=== PATIENT | male | born 1955 | race Caucasian/White ===

== ENCOUNTER → 2016-10-20 | Outpatient (REF) | payer BC ==
[~2016-10-20] MED LIST: /MOXI40TA PO; /PANT40TA PO; ACET50TA PO; ALEV220C2 PO; ASPI81TA85 PO; BACITAB PO; CORICIDIN PO; CRES40TA PO; IMDU30TA PO; NITR4TASL SL; PROP40TA7 PO
== END ==
LOC: M LAB REF 13:25
PROVIDERS: ATTEND Nurse Practitioner Family
DX: R39.12 Poor urinary stream (principal)

== ENCOUNTER → 2016-10-30 | Outpatient (CLI) | payer BC | LOC: M LAB 08:30 | PROVIDERS: ATTEND Urology | DX: Z12.5 Encounter for screening for malignant neoplasm of prostate (principal) | CPT/HCPCS: 36415; G0103 ==

== ENCOUNTER 2016-12-22 18:17 | Emergency (ER) | payer BC ==
[~2016-12-22] VITALS: Ht 172.7 cm; Wt 85.3 kg
[2016-12-22 18:17] VITALS: BP 159/92
[2016-12-22] MEDS ORDERED: PEPC10CH PO (18:38)
[2016-12-22] MEDS ORDERED: RANO5TAB (18:38)
--- NOTE | 2016-12-22 19:24 | REP ---
Left knee four views : There is no fracture or dislocation. Mineralization and joint spaces are normal. There are no calcifications or foreign bodies. Impression: Negative left knee . Signed by Naseem Whiting MD 12/22/2016 07:15 P
[2016-12-22] MEDS ORDERED: NORCOTAB PO (21:00)
[2016-12-22] MEDS ORDERED: ACETAMINOPH W/CODEINE #3 TAB UD PO ONE ×2 (21:00)
== END 2016-12-22 21:44 | disposition home or self-care (01) ==
LOC: M ED 21:14
DX: M25.562 Pain in left knee (principal); I10 Essential (primary) hypertension; E78.5 Hyperlipidemia, unspecified; Z79.899 Other long term (current) drug therapy; Z79.82 Long term (current) use of aspirin; Z88.8 Allergy status to other drugs, medicaments and biological substances

== ENCOUNTER 2017-01-01 08:06 | Outpatient (RCR) | payer BC ==
[~2017-01-01 08:06] MED LIST changes: +NORCOTAB PO; +PEPC10CH PO; +RANO5TAB
== END 2017-01-16 ==
LOC: M PT 08:06
PROVIDERS: ATTEND Orthopaedic Surgery
DX: M25.562 Pain in left knee (principal)

== ENCOUNTER 2017-02-10 15:00 | Emergency (ER) | payer BC ==
[~2017-02-10] VITALS: Ht 165.1 cm; Wt 81.8 kg
[2017-02-10] MEDS ORDERED: MORPHINE 4 MG/ML 1ML SYRINGE IV PRN (15:30)
[2017-02-10] MEDS ORDERED: NS 500 ML IV ONE (15:30)
[2017-02-10] MEDS ORDERED: ONDANSETRON 4MG/2ML VIAL (J2405) IV ONE (15:30)
[2017-02-10 15:41] LABS: BASO % 0.3 % (0.0-1.0); EOS # 0.1 K/mm3 (0.0-0.50); EOS % 1.9 % (0.0-3.0); LARGE UNSTAINED CELL # 0.1 K/mm3 (0.0-0.4); LYMPH # 1.7 K/mm3 (1.5-4.5); LYMPH % 32.3 % (24.0-44.0); MEAN CORPUSCULAR HEMOGLOBIN 30.6 pg (27.0-33.0); MEAN CORPUSCULAR HGB CONC 33.2 g/dl (32.0-36.5); MEAN CORPUSCULAR VOLUME 91.9 fl (80.0-96.0); MONO # 0.4 K/mm3 (0.0-0.8); MONO % 7.3 % (0.0-5.0); NEUTROPHILS # 2.8 K/mm3 (1.8-7.7); NEUTROPHILS % 56.3 % (36.0-66.0); PLATELET COUNT, AUTOMATED 212 k/mm3 (150-450); RED CELL DISTRIBUTION WIDTH 13.5 % (11.5-14.5)
[2017-02-10 15:52] LABS: INR 1.01
[2017-02-10 16:14] LABS: ANION GAP 6 MEQ/L (8-16); AST/SGOT 19 U/L (15-37); BLOOD UREA NITROGEN 13 MG/DL (7-18); CALCIUM LEVEL 8.7 MG/DL (8.8-10.2); CARBON DIOXIDE LEVEL 25 MEQ/L (21-32); CHLORIDE LEVEL 105 MEQ/L (98-107); CREATININE FOR GFR 1.21 MG/DL (0.70-1.30); GLOMERULAR FILTRATION RATE > 60.0 (>49); GLUCOSE, FASTING 113 MG/DL (80-110); POTASSIUM SERUM 4.2 MEQ/L (3.5-5.1); SODIUM LEVEL 136 MEQ/L (136-145)
[2017-02-10 16:15] LABS: ALBUMIN 3.8 GM/DL (3.2-5.2); ALBUMIN/GLOBULIN RATIO 1.27 (1.00-1.93); ALKALINE PHOSPHATASE 104 U/L (45-117); ALT/SGPT 19 U/L (12-78); BILIRUBIN,DIRECT 0.2 MG/DL (0.0-0.2); BILIRUBIN,TOTAL 0.9 MG/DL (0.2-1.0); TOTAL PROTEIN 6.8 GM/DL (6.4-8.2)
[2017-02-10] MEDS ORDERED: ISOVUE-370 76% 100ML VIAL (Q9967) As Ordered ONE (16:27)
--- NOTE | 2017-02-10 17:10 | REP ---
REASON: Chest pain. COMPARISON: Multiple latest 05/28/2016 FINDINGS: The technique utilized in obtaining the radiograph has magnified the cardiac silhouette and accentuated the interstitial markings. The superior mediastinal structures are midline. The cardiac silhouette is unremarkable in size, shape, and position. The diaphragmatic surfaces of the lungs are regular, and the costophrenic angles are clear. The pulmonary garber are clear. The imaged osseous structures are intact. No significant change from the latest prior. IMPRESSION: There is no acute cardiopulmonary disease. Signed by Ned Mendoza DO 02/11/2017 02:21 P
--- NOTE | 2017-02-10 19:24 | REP ---
CT ANGIO CHEST: 02/10/2017. Comparison: Portable chest today, CT angiogram chest 03/24/2015. Clinical history: Chest pain in a 61-year-old male. Technique: The patient received 75 mL Isovue [address] pulmonary angiogram protocol. Findings: The lung garber are well inflated. There is no pleural effusion, pleural plaque or calcified plaque, pulmonary nodule or parenchymal mass. There is dependent atelectatic change in both lower lung zones and some patchy atelectasis in the deep sulci bilaterally. No dense consolidation or mass. Moderate sized hiatal hernia with about half of the stomach in the chest. Heart mildly prominent. Left atrium and left ventricle as well as right atrium are mildly prominent. There is no pericardial thickening or effusion. The aorta is without aneurysm or dissection. The main, right and left pulmonary arteries in the mediastinum are without filling defects. The lobar arteries are also without filling defects. The segmental and visible subsegmental arteries are without filling defects or vessel cutoff on either side. No pathologic sized mediastinal or hilar adenopathy and no axillary, supraclavicular mass. Thyroid lobes symmetric. The bone windows show sternum, manubrium, medial clavicles, glenohumeral joints, humeral heads, scapulae, ribs and spine without fracture, destructive lesion. There is slight thoracic kyphosis and degenerative disc changes most levels with marginal osteophytes. In the upper abdomen that portion of liver and spleen included are without focal lesion. There is moderate stool in the hepatic flexure through the splenic flexure without colitis. Pancreas unremarkable. There is no adrenal lesions. Upper poles of kidneys intact. Impression: 1. No CT evidence of pulmonary thromboembolism. 2. No aortic aneurysm or dissection, effusion, infiltrate or pneumothorax. Minor dependent atelectatic change. 3. Gastric bypass surgical clips with moderate sized hiatal hernia. 4. No mediastinal or hilar mass, adenopathy, pericardial effusion, axillary or supraclavicular mass. 5. Some degenerative changes in the spine without acute bony finding. Signed by Jeremy Higginbotham MD 02/11/2017 08:13 P
[2017-02-10 20:32] VITALS: BP 120/63
--- NOTE | 2017-02-12 11:20 | ECGEPIP ---
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
== END 2017-02-10 20:43 | disposition home or self-care (01) ==
LOC: M ED 15:00
DX: R07.9 Chest pain, unspecified (principal); I10 Essential (primary) hypertension; I25.10 Atherosclerotic heart disease of native coronary artery without angina pectoris; I25.2 Old myocardial infarction; Z95.5 Presence of coronary angioplasty implant and graft; Z95.1 Presence of aortocoronary bypass graft; Z88.8 Allergy status to other drugs, medicaments and biological substances; Z79.899 Other long term (current) drug therapy; Z79.82 Long term (current) use of aspirin
CPT/HCPCS: 71010; 71275; 80048; 80076; 82550; 82553; 84439; 84443; 85025; 85379; 85610; 85730; 93005; 93041; 94760; 96374; 96375; 99285; J2405; Q9967

== ENCOUNTER → 2017-05-19 | Outpatient (RCR) | payer BC | LOC: M PT 05-15 14:26 | PROVIDERS: ATTEND Orthopaedic Surgery | DX: Z51.89 Encounter for other specified aftercare (principal); S83.282D Other tear of lateral meniscus, current injury, left knee, subsequent encounter; S83.242D Other tear of medial meniscus, current injury, left knee, subsequent encounter; X58.XXXA Exposure to other specified factors, initial encounter; Y92.89 Other specified places as the place of occurrence of the external cause; Y93.89 Activity, other specified; Y99.8 Other external cause status ==

== ENCOUNTER 2017-06-02 08:23 | Outpatient (RCR) | payer BC | END 2017-06-18 | LOC: M PT 08:23 | PROVIDERS: ATTEND Orthopaedic Surgery | DX: Z51.89 Encounter for other specified aftercare (principal); Z98.890 Other specified postprocedural states ==

== ENCOUNTER → 2017-07-16 | Outpatient (CLI) | payer BC | LOC: M RAD 13:43 | DX: M51.06 Intervertebral disc disorders with myelopathy, lumbar region (principal) | CPT/HCPCS: 72148 ==

== ENCOUNTER → 2018-01-13 | Outpatient (REF) | payer BC ==
[2018-01-13 18:46] LABS: AMYLASE 54 U/L (25-115)
[2018-01-13 18:46] LABS: LIPASE 163 U/L (73-393)
== END ==
LOC: M LAB REF 17:34
DX: R10.817 Generalized abdominal tenderness (principal)

== ENCOUNTER → 2018-03-18 | Outpatient (REF) | payer BC, MEDICARE | LOC: M LAB REF 17:00 | DX: J01.90 Acute sinusitis, unspecified (principal) | CPT/HCPCS: 87070 ==

== ENCOUNTER 2018-06-30 09:32 | Emergency (ER) | payer BC, MEDICARE ==
[2018-06-30 10:36] LABS: BASO % 0.2 % (0.0-1.0); EOS % 0.2 % (0.0-3.0); IMMATURE GRANULOCYTE % 0.5 % (0-3.0); LYMPH % 8.8 % (24.0-44.0); MEAN CORPUSCULAR HEMOGLOBIN 31.6 pg (27.0-33.0); MEAN CORPUSCULAR HGB CONC 34.2 g/dl (32.0-36.5); MEAN CORPUSCULAR VOLUME 92.2 fl (80.0-96.0); MONO # 0.9 10^3/uL (0.0-0.8); MONO % 8.5 % (0.0-5.0); NEUTROPHILS # 8.9 10^3/uL (1.8-7.7); NEUTROPHILS % 81.8 % (36.0-66.0); PLATELET COUNT, AUTOMATED 252 10^3/uL (150-450); RED BLOOD COUNT 4.12 10^6/uL (4.30-6.10); RED CELL DISTRIBUTION WIDTH 12.9 % (11.5-14.5); WHITE BLOOD COUNT 10.9 10^3/uL (4.0-10.0)
[2018-06-30 10:47] LABS: INR 0.97; PARTIAL THROMBOPLASTIN TIME 25.9 SECONDS (25.4-37.6)
[2018-06-30 11:20] LABS: ALBUMIN 3.6 GM/DL (3.2-5.2); ALBUMIN/GLOBULIN RATIO 0.88 (1.00-1.93); ALKALINE PHOSPHATASE 132 U/L (45-117); ALT/SGPT 26 U/L (12-78); ANION GAP 6 MEQ/L (8-16); AST/SGOT 28 U/L (7-37); BILIRUBIN,DIRECT 0.1 MG/DL (0.0-0.2); BILIRUBIN,TOTAL 0.5 MG/DL (0.2-1.0); BLOOD UREA NITROGEN 15 MG/DL (7-18); CALCIUM LEVEL 8.6 MG/DL (8.8-10.2); CARBON DIOXIDE LEVEL 24 MEQ/L (21-32); CHLORIDE LEVEL 110 MEQ/L (98-107); CPK CREATINE PHOSPHOKINASE 590 U/L (39-308); CREATININE FOR GFR 1.17 MG/DL (0.70-1.30); FREE T4 0.99 NG/DL (0.76-1.46); GLOMERULAR FILTRATION RATE > 60.0 (>49); GLUCOSE, FASTING 100 MG/DL (70-100); LIPASE 132 U/L (73-393); MB/CK RELATIVE INDEX 0.46 (< OR =4); POTASSIUM SERUM 4.7 MEQ/L (3.5-5.1); SODIUM LEVEL 140 MEQ/L (136-145); TOTAL PROTEIN 7.7 GM/DL (6.4-8.2); TROPONIN I < 0.02 NG/ML (< 0.10)
[2018-06-30] MEDS ORDERED: GI COCKTAIL 50ML BTL(HYOSCYAMINE/MAALOX/LIDOCAINE VISCOUS)(1:3:1) As Ordered (12:26)
[2018-06-30] MEDS: GI COCKTAIL 50ML BTL(HYOSCYAMINE/MAALOX/LIDOCAINE VISCOUS)(1:3:1) PO (12:30)
[2018-06-30 14:04] LABS: CPK CREATINE PHOSPHOKINASE 523 U/L (39-308); MB/CK RELATIVE INDEX 0.42 (< OR =4); TROPONIN I < 0.02 NG/ML (< 0.10)
== END 2018-06-30 14:58 | disposition home or self-care (01) ==
LOC: M ED 09:32
DX: K22.4 Dyskinesia of esophagus (principal); K21.9 Gastro-esophageal reflux disease without esophagitis; K44.9 Diaphragmatic hernia without obstruction or gangrene; I10 Essential (primary) hypertension; Z79.82 Long term (current) use of aspirin; I25.10 Atherosclerotic heart disease of native coronary artery without angina pectoris; Z88.8 Allergy status to other drugs, medicaments and biological substances
CPT/HCPCS: 71046

== ENCOUNTER → 2018-09-07 | Outpatient (REF) | payer BC, MEDICARE ==
[~2018-09-07] MED LIST changes: +AMOX500C; +FLUTISP; +PRED20TA; +SUCR1TAB56 PO
[2018-09-07 14:35] LABS: PERCENT SATURATION 20.2 % (19.7-50.0)
== END ==
LOC: M LAB REF 12:24
PROVIDERS: ATTEND Internal Medicine
DX: Z98.84 Bariatric surgery status (principal)

== ENCOUNTER → 2019-06-01 | Outpatient (CLI) | payer BC, MEDICARE ==
[~2019-06-01] MED LIST changes: -/MOXI40TA PO; -/PANT40TA PO; -ACET50TA PO; +AVEL1TAB2 PO; +HYDR-3715 PO; +MAPA500T17 PO; -NORCOTAB PO; +PROT1TAB2 PO; +RANO500T7; -RANO5TAB
--- NOTE | 2019-06-01 11:39 | REP ---
MRI lumbar spine: 06/01/2019. Indication: Low back pain. Comparison: 07/16/2017. Technique: Multiplanar short and long TR sequences of the lumbar spine were obtained without IV Gadolinium. Findings: There is minimal retrolisthesis of L1 on L2, L2 on L3 and L3 on L4. No worrisome marrow signal is present. The visualized cord is normal. Disc desiccation and disc space narrowing are present throughout the lumbar spine. No significant paraspinal soft tissue abnormalities are present. L1/L2: Disc and spur complex is present most pronounced anteriorly with bilateral facet arthropathy which is mild. There is no significant spinal canal or neural foraminal narrowing. L2/L3: There is an asymmetric disc and spur complex more pronounced on the left without significant spinal canal or right neural foraminal narrowing. Mild facet arthropathy is present. There is mild left neural foraminal narrowing. L3/L4: Diffuse disc bulge and left greater than right facet arthropathy are present without significant spinal canal or neural foraminal narrowing. L4/L5: There is a far right lateral disc herniation superimposed on a diffuse disc bulge best appreciated on image 11 of the sagittal T1 sequence. The disc herniation does contact the exiting L4 nerve root. There is no significant spinal canal or left neural foraminal narrowing. L5/S1: Diffuse disc and spur complex and bilateral facet arthropathy are present with moderate to severe right and mild left recess narrowing. Moderate bilateral neural foraminal narrowing is present. Impression: Far right lateral L4/L5 disc herniation. Additional multilevel degenerative sequelae of the lumbar spine as described. Electronically Signed by Zenon Nieves DO 06/01/2019 11:31 A
== END ==
LOC: M RAD 09:30
PROVIDERS: ATTEND Orthopaedic Surgery
DX: M47.26 Other spondylosis with radiculopathy, lumbar region (principal)

== ENCOUNTER → 2019-10-13 | Outpatient (REF) | payer MEDICARE ==
[2019-10-13 13:08] LABS: FOLATE 6.6 NG/ML
== END ==
LOC: M LAB REF 12:32
PROVIDERS: ATTEND Internal Medicine
DX: Z98.84 Bariatric surgery status (principal)

== ENCOUNTER → 2019-12-14 | Outpatient (REF) | payer MEDICARE ==
[2019-12-16 17:07] LABS: Lyme Disease IgG/IgM Antibodie <0.91 ISR (0.00-0.90); Lyme Disease IgM Ab Quantitati <0.80 index (0.00-0.79)
== END ==
LOC: M LAB REF 16:13
PROVIDERS: ATTEND Physician Assistant Medical
DX: Z11.59 Encounter for screening for other viral diseases (principal); W57.XXXA Bitten or stung by nonvenomous insect and other nonvenomous arthropods, initial encounter

== ENCOUNTER → 2020-10-12 | Outpatient (REF) | payer MEDICARE ==
[2020-10-12 17:34] LABS: FOLATE 6.6 NG/ML
[2020-10-15 17:03] LABS: PERCENT SATURATION 9.6 % (19.7-50.0)
== END ==
LOC: M LAB REF 16:27
PROVIDERS: ATTEND Internal Medicine
DX: Z98.84 Bariatric surgery status (principal); D50.9 Iron deficiency anemia, unspecified

== ENCOUNTER → 2020-10-29 | Outpatient (REF) | payer MEDICARE | LOC: M LAB REF 12:15 | PROVIDERS: ATTEND Internal Medicine | DX: D64.9 Anemia, unspecified (principal) ==

== ENCOUNTER → 2020-11-22 | Outpatient (REF) | payer MEDICARE ==
[2020-11-22 13:53] LABS: PERCENT SATURATION 26.9 % (19.7-50.0)
== END ==
LOC: M LAB REF 12:27
PROVIDERS: ATTEND Internal Medicine
DX: D51.9 Vitamin B12 deficiency anemia, unspecified (principal); Z98.84 Bariatric surgery status

== ENCOUNTER → 2020-11-26 | Outpatient (CLI) | payer MEDICARE ==
--- NOTE | 2020-11-26 10:12 | REP ---
INDICATION: CHRONIC COUGH COMPARISON: 06/30/2018. TECHNIQUE: PA/Lateral FINDINGS: Lungs: Clear, no infiltrate. Heart: Normal in size. Mediastinum: Mediastinal silhouette unremarkable. Pleural angles: Unremarkable.. Bones and soft tissues: There are degenerative changes of the spine without compression deformity. There is a large hiatal hernia. IMPRESSION: No acute pulmonary disease. No change since prior study. <Electronically signed by Naseem Nickerson > 11/26/20 1000
== END ==
LOC: M WUC 08:41
PROVIDERS: ATTEND Internal Medicine
DX: R05 Cough (principal)

== ENCOUNTER → 2020-12-13 | Outpatient (REF) | payer MEDICARE | LOC: M LAB REF 16:47 | PROVIDERS: ATTEND Internal Medicine | DX: D50.9 Iron deficiency anemia, unspecified (principal) ==

== ENCOUNTER 2021-01-08 23:52 | Emergency (ER) | payer OTHER, MEDICARE ==
[~2021-01-08] VITALS: Ht 170.2 cm; Wt 81.8 kg
[2021-01-09 00:59] LABS: BASO % 0.6 % (0.0-1.0); EOS # 0.1 10^3/uL (0.0-0.5); EOS % 1.1 % (0.0-3.0); HEMATOCRIT 40.5 % (42.0-52.0); LYMPH # 1.2 10^3/uL (1.5-5.0); LYMPH % 17.2 % (24.0-44.0); MEAN CORPUSCULAR HEMOGLOBIN 27.8 pg (27.0-33.0); MEAN CORPUSCULAR HGB CONC 32.1 g/dl (32.0-36.5); MEAN CORPUSCULAR VOLUME 86.7 fl (80.0-96.0); MONO # 0.7 10^3/uL (0.0-0.8); MONO % 9.8 % (2.0-8.0); NEUTROPHILS % 70.9 % (36.0-66.0); PLATELET COUNT, AUTOMATED 236 10^3/uL (150-450); RED BLOOD COUNT 4.67 10^6/uL (4.30-6.10); WHITE BLOOD COUNT 7.1 10^3/uL (4.0-10.0)
[2021-01-09 01:24] LABS: ALBUMIN 3.9 GM/DL (3.2-5.2); ALT/SGPT 33 U/L (12-78); BILIRUBIN,DIRECT 0.1 MG/DL (0.0-0.2); BILIRUBIN,TOTAL 0.6 MG/DL (0.2-1.0); BLOOD UREA NITROGEN 19 MG/DL (7-18); CALCIUM LEVEL 8.7 MG/DL (8.8-10.2); CARBON DIOXIDE LEVEL 23 MEQ/L (21-32); CHLORIDE LEVEL 109 MEQ/L (98-107); CK-MB VALUE MASS 1.9 NG/ML (<3.6); CPK CREATINE PHOSPHOKINASE 214 U/L (39-308); CREATININE FOR GFR 1.33 MG/DL (0.70-1.30); GLOMERULAR FILTRATION RATE 57.3 (>49); GLUCOSE, FASTING 182 MG/DL (70-100); LIPASE 246 U/L (73-393); MB/CK RELATIVE INDEX 0.89 (< OR =4); POTASSIUM SERUM 3.9 MEQ/L (3.5-5.1); SODIUM LEVEL 139 MEQ/L (136-145); TOTAL PROTEIN 7.4 GM/DL (6.4-8.2); TROPONIN I < 0.02 NG/ML (< 0.10)
--- NOTE | 2021-01-09 01:45 | REPVR ---
PROCEDURE INFORMATION: Exam: XR Chest Exam date and time: 01/09/2021 12:41 AM Age: 65 years old Clinical indication: Pain; Other: Not specified; Additional info: Chest pain TECHNIQUE: Imaging protocol: XR of the chest. Views: 1 view. COMPARISON: 1. CR PORTABLE CHEST X-RAY 02/10/2017 3:44 PM 2. SC CHEST 2 VIEW 11/26/2020 8:57 AM 3. SC Chest, 2 view PA, Lat 06/30/2018 10:03 AM FINDINGS: Lungs: Degree of lung inflation is normal. No evidence of pulmonary edema. No focal consolidation or parenchymal lung mass. Pleural spaces: No pleural effusion or pneumothorax. Heart/Mediastinum: Cardiac silhouette appears normal. No adenopathy or hilar mass. Probable hiatal hernia Bones/joints: Osseous structures show no concerning abnormality. IMPRESSION: 1. No acute or focal cardiopulmonary process. 2. Retrocardiac density suggestive of a hiatal hernia Electronically signed by: Marcus Ignacio On 01/09/2021 01:45:28 AM
[2021-01-09] MEDS ORDERED: GI COCKTAIL 50ML BTL(HYOSCYAMINE/MAALOX/LIDOCAINE VISCOUS)(1:3:1) PO ONE (05:05)
[2021-01-09] MEDS ORDERED: FERR325T19 (05:37)
[2021-01-09] MEDS ORDERED: NITR0.4S14 (05:37)
[2021-01-09 05:45] VITALS: BP 145/78
--- NOTE | 2021-01-10 07:10 | ECGEPIP ---
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
== END 2021-01-09 05:59 | disposition home or self-care (01) ==
LOC: M ED 23:52
DX: K22.4 Dyskinesia of esophagus (principal); Z88.1 Allergy status to other antibiotic agents; Z88.8 Allergy status to other drugs, medicaments and biological substances

== ENCOUNTER → 2021-02-09 | Outpatient (CLI) | payer OTHER, MEDICARE ==
[~2021-02-09] MED LIST changes: +ASPI81TA26 PO; +ATOR1TAB21 PO; +BETA1TAB PO; +CYAN500T14 PO; +FERR325T19 PO; +NITR0.4S14; +VITMTA PO
== END ==
LOC: M LABSMTC 09:15
PROVIDERS: ATTEND Anesthesiology
DX: Z01.812 Encounter for preprocedural laboratory examination (principal); Z20.822 Contact with and (suspected) exposure to COVID-19

== ENCOUNTER 2021-02-14 11:44 | Day surgery (SDC) | payer OTHER, MEDICARE ==
[~2021-02-14] VITALS: Ht 170.2 cm; Wt 78.0 kg
[~2021-02-14 11:44] MED LIST changes: +NS 1,000 ML IV ONE
[2021-02-14] MEDS ORDERED: fentaNYL 100 MCG/2 ML INJECTION (J3010) As Ordered ONE (12:21)
[2021-02-14] MEDS ORDERED: LIDOCAINE 2% 100MG/5ML SDV (FOR ANES.) As Ordered ONE (12:21)
[2021-02-14] MEDS ORDERED: propofoL 200 MG/20 ML VIAL As Ordered ONE (12:21)
--- NOTE | 2021-02-14 12:46 | ROOR ---
Patient Name: West Manzano Procedure Date: 02/14/2021 12:11 PM Date of : 1955 Age: 65 Room: [facility] Gender: Male Note Status: Finalized Procedure: Upper GI endoscopy Indications: Iron deficiency anemia Providers: Rickie Urena Jr, MD Referring MD: LORNA VELASQUEZ JR, MD Requesting Provider: Medicines: Propofol per Anesthesia Complications: No immediate complications. Procedure: Pre-Anesthesia Assessment: - Prior to the procedure, a History and Physical was performed, and patient medications and allergies were reviewed. The patient is competent. The risks and benefits of the procedure and the sedation options and risks were discussed with the patient. All questions were answered and informed consent was obtained. Patient identification and proposed procedure were verified by the physician and the nurse in the pre-procedure area and in the procedure room. Mental Status Examination: alert and oriented. Airway Examination: normal oropharyngeal airway and neck mobility. Respiratory Examination: clear to auscultation. CV Examination: normal. ASA Grade Assessment: II - A patient with mild systemic disease. After reviewing the risks and benefits, the patient was deemed in satisfactory condition to undergo the procedure. The anesthesia plan was to use moderate sedation / analgesia (conscious sedation). Immediately prior to administration of medications, the patient was re-assessed for adequacy to receive sedatives. The heart rate, respiratory rate, oxygen saturations, blood pressure, adequacy of pulmonary ventilation, and response to care were monitored throughout the procedure. The physical status of the patient was re-assessed after the procedure. The Endoscope was introduced through the mouth, and advanced to the jejunum. The upper GI endoscopy was accomplished without difficulty. The patient tolerated the procedure well. Findings: The upper third of the esophagus, middle third of the esophagus, lower third of the esophagus and gastroesophageal junction were normal. Abnormal motility was noted in the distal esophagus. There is spasticity of the esophageal body. The distal esophagus/lower esophageal sphincter is open. Evidence of a gastric bypass was found. A gastric pouch with a large size was found. The staple line appeared intact. The gastrojejunal anastomosis was characterized by healthy appearing mucosa. This was traversed. The [id number] limb was characterized by healthy appearing mucosa. The examined jejunum was normal. Impression: - Normal upper third of esophagus, middle third of esophagus, lower third of esophagus and gastroesophageal junction. - Abnormal esophageal motility, suspicious for esophageal spasm. - Gastric bypass with a large-sized pouch and intact staple line. Gastrojejunal anastomosis characterized by healthy appearing mucosa. - Normal examined jejunum. - No specimens collected. Recommendation: - Discharge patient to home (ambulatory). - Return to my office as previously scheduled. 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 All rights reserved. The codes documented in this report are preliminary and upon clinical coder review may be revised to meet current compliance requirements. Rickie Urena MD Rickie Urena Jr, MD 02/14/2021 12:45:44 PM Electronically signed by Rickie Urena Jr, MD Number of Addenda: 0 Note Initiated On: 02/14/2021 12:11 PM Estimated Blood Loss: Estimated blood loss: none.
--- NOTE | 2021-02-14 12:47 | ROOR ---
Patient Name: West Manzano Procedure Date: 02/14/2021 12:12 PM Date of : 1955 Age: 65 Room: [facility] Gender: Male Note Status: Finalized Procedure: Colonoscopy Indications: Iron deficiency anemia Providers: Rickie Urena Jr, MD Referring MD: LORNA VELASQUEZ JR, MD Requesting Provider: Medicines: Propofol per Anesthesia Complications: No immediate complications. Procedure: Pre-Anesthesia Assessment: - Prior to the procedure, a History and Physical was performed, and patient medications and allergies were reviewed. The patient is competent. The risks and benefits of the procedure and the sedation options and risks were discussed with the patient. All questions were answered and informed consent was obtained. Patient identification and proposed procedure were verified by the physician and the nurse in the pre-procedure area and in the procedure room. Mental Status Examination: alert and oriented. Airway Examination: normal oropharyngeal airway and neck mobility. Respiratory Examination: clear to auscultation. CV Examination: normal. ASA Grade Assessment: II - A patient with mild systemic disease. After reviewing the risks and benefits, the patient was deemed in satisfactory condition to undergo the procedure. The anesthesia plan was to use moderate sedation / analgesia (conscious sedation). Immediately prior to administration of medications, the patient was re-assessed for adequacy to receive sedatives. The heart rate, respiratory rate, oxygen saturations, blood pressure, adequacy of pulmonary ventilation, and response to care were monitored throughout the procedure. The physical status of the patient was re-assessed after the procedure. The Colonoscope was introduced through the anus and advanced to the cecum, identified by appendiceal orifice and ileocecal valve. The colonoscopy was performed without difficulty. The patient tolerated the procedure well. Findings: The rectum, recto-sigmoid colon, sigmoid colon, descending colon, transverse colon, ascending colon, cecum, appendiceal orifice and ileocecal valve appeared normal. Impression: - The rectum, recto-sigmoid colon, sigmoid colon, descending colon, transverse colon, ascending colon, cecum, appendiceal orifice and ileocecal valve are normal. - No specimens collected. Recommendation: - Discharge patient to home (ambulatory). - Return to my office as previously scheduled. Procedure Code(s): --- Professional --- 88598, Colonoscopy, flexible; diagnostic, including collection of specimen(s) by brushing or washing, when performed (separate procedure) Diagnosis Code(s): --- Professional --- D50.9, Iron deficiency anemia, unspecified CPT copyright 2019 [employer]. All rights reserved. The codes documented in this report are preliminary and upon outpatient coder review may be revised to meet current compliance requirements. Rickie Urena MD Rickie Urena Jr, MD 02/14/2021 12:47:08 PM Electronically signed by Rickie Urena Jr, MD Number of Addenda: 0 Note Initiated On: 02/14/2021 12:12 PM Estimated Blood Loss: Estimated blood loss: none.
[2021-02-14 13:00] VITALS: BP 129/72
== END 2021-02-14 13:10 | disposition home or self-care (01) ==
LOC: M OPP 11:44
PROVIDERS: ATTEND Surgery
DX: D50.9 Iron deficiency anemia, unspecified (principal); R13.10 Dysphagia, unspecified; K22.4 Dyskinesia of esophagus; Z98.84 Bariatric surgery status; I25.10 Atherosclerotic heart disease of native coronary artery without angina pectoris; I25.2 Old myocardial infarction; E78.5 Hyperlipidemia, unspecified; M10.9 Gout, unspecified; K21.9 Gastro-esophageal reflux disease without esophagitis; M19.90 Unspecified osteoarthritis, unspecified site; Z95.5 Presence of coronary angioplasty implant and graft; Z88.8 Allergy status to other drugs, medicaments and biological substances; Z79.82 Long term (current) use of aspirin; Z79.899 Other long term (current) drug therapy
CPT/HCPCS: 43235; 45378; J3010

== ENCOUNTER → 2021-03-04 | Outpatient (REF) | payer OTHER, MEDICARE ==
[~2021-03-04] MED LIST changes: -NS 1,000 ML IV ONE
[2021-03-04 18:01] LABS: PERCENT SATURATION 32.1 % (19.7-50.0)
== END ==
LOC: M LAB REF 16:48
PROVIDERS: ATTEND Internal Medicine
DX: D50.9 Iron deficiency anemia, unspecified (principal)

== ENCOUNTER → 2021-03-14 | Outpatient (CLI) | payer OTHER, MEDICARE ==
--- NOTE | 2021-03-14 08:32 | REP ---
INDICATION: INTERMITTENT RUQ PAIN COMPARISON: 05/22/2015 TECHNIQUE: Real time livingston scale ultrasound examination using curved array transducer. FINDINGS: Liver demonstrates a somewhat heterogeneous coarsened echotexture with possible prominent masslike extension of the medial right lobe posterior to the main portal vein which is confirmed by CT dated 10/28/2017. Pancreas is incompletely evaluated. Due to interposed bowel gas. The patient is status post cholecystectomy without biliary ductal dilatation. The common bile duct measures 4.9 mm diameter. The right kidney is normal in reniform shape without hydronephrosis and measures 10.0 x 5.0 x 4.4 cm. Visualized portions of the abdominal aorta appear normal. No ascites. IMPRESSION: Prominent extension along the medial aspect of the right hepatic lobe less likely representing mass and appearing similar to findings on CT dated 2017. If for any reason the patient remains symptomatic consider pre and postcontrast CT of the abdomen and pelvis for further investigation. <Electronically signed by Oc Mcguire > 03/14/21 0829
== END ==
LOC: M RAD 06:32
PROVIDERS: ATTEND Internal Medicine
DX: R10.11 Right upper quadrant pain (principal)

== ENCOUNTER → 2021-03-18 | Outpatient (CLI) | payer OTHER, MEDICARE ==
[~2021-03-18] MED LIST changes: +E-Z-GAS II EFFERVESCENT PACKET (SODIUM BICARB./CITRIC ACID/SIMETHICONE) As Ordered ONE; +E-Z-HD 98% w/w 340GM SUSP BTL As Ordered ONE; +E-Z-PAQUE 96% w/w SUSP 176GM BTL As Ordered ONE
--- NOTE | 2021-03-18 19:36 | REP ---
INDICATION: DYSPHAGIA. COMPARISON: Esophagram dated 06/01/2015, TECHNIQUE: This procedure was performed by Meka Palencia [facility], under the direct supervision of Dr. Nickerson. Images were reviewed with Dr. Nickerson prior to dictation. Liquid barium and gas producing crystals were given in the erect position, as well as liquid barium in the prone oblique position in order to perform a double contrast esophagram examination. FINDINGS: A single view PA chest x-ray is submitted as a brand activation manager film. The superior mediastinal structures are midline. The heart size is within normal limits. The lungs are clear. Patient is status post gastroenterostomy surgery. The oral and pharyngeal stages of deglutition were unremarkable. Esophageal transport is prompt and efficient and there is no evidence of esophagitis, stricture, or mucosal ring. However esophageal spasm with tertiary contraction's was visualized during the exam. There is evidence of a large hiatal hernia. No gastroesophageal reflux was visualized during the exam.. IMPRESSION: 1. Esophageal spasm with tertiary contractions. 2. Large hiatal hernia. 0.4 minutes of fluoroscopy time was utilized for this procedure. Some fluoroscopic images are performed with last image hold technology. These images require no additional radiation. <Electronically signed by Meka Palencia > 03/18/21 1653 <Electronically signed by Naseem Nickerson > 03/18/21 [id number]
== END ==
LOC: M RAD 09:20
PROVIDERS: ATTEND Physician Assistant
DX: R13.10 Dysphagia, unspecified (principal); K44.9 Diaphragmatic hernia without obstruction or gangrene

== ENCOUNTER → 2021-04-23 | Outpatient (CLI) | payer BC, MEDICARE ==
[~2021-04-23] MED LIST changes: -E-Z-GAS II EFFERVESCENT PACKET (SODIUM BICARB./CITRIC ACID/SIMETHICONE) As Ordered ONE; -E-Z-HD 98% w/w 340GM SUSP BTL As Ordered ONE; -E-Z-PAQUE 96% w/w SUSP 176GM BTL As Ordered ONE
--- NOTE | 2021-04-23 10:41 | REP ---
INDICATION: POSSIBLE LIVER MASS, POSSIBLE RT SIDED TIA COMPARISON: None. TECHNIQUE: Nickerson scale and color Doppler evaluation using linear high frequency transducer Findings: FINDINGS: Two-dimensional nickerson scale and color images demonstrate normal arterial lumen with minimal intimal thickening and no appreciable narrowing. Color Doppler interrogation demonstrates normal arterial wave patterns and velocities with no significant spectral broadening. Normal flow direction is appreciated in the bilateral vertebral arteries. ICA peak systolic velocity: Right 91.9 cm/s; Left 89.5 cm/s ICA diastolic velocity: Right 15.5 cm/s; Left 32.4 cm/s ECA peak systolic velocity: Right 177.0 cm/s; Left 168.0 cm/s CCA peak systolic velocity: Right 88.8 cm/s; Left 129.0 cm/s ICA/CCA ratio: Right 1.03 cm/s; Left 0.69 cm/s IMPRESSION: No hemodynamically significant areas of narrowing or stenosis appreciated. Based on set standards narrowing falls within the less than 50% range. <Electronically signed by Oc Mcguire > 04/23/21 1037
== END ==
LOC: M RAD 10:07
PROVIDERS: ATTEND Internal Medicine
DX: D37.6 Neoplasm of uncertain behavior of liver, gallbladder and bile ducts (principal); G45.9 Transient cerebral ischemic attack, unspecified

== ENCOUNTER → 2021-05-31 | Outpatient (CLI) | payer BC, MEDICARE ==
[~2021-05-31] MED LIST changes: +GASTROGRAFIN SOLUTION 30ML (Q9963) ONE; +ISOVUE-370 76% 100ML VIAL ONE
--- NOTE | 2021-05-31 14:39 | REP ---
INDICATION: LIVER MASS SEEN ON RUQ U/S. COMPARISON: Abdominal ultrasound 03/14/2021, CT A/P 08/15/2015, 06/03/2013. TECHNIQUE: Oral Gastrografin mixture 10 mL in 290 mL flavored water for 2 doses per our bowel contrast protocol followed by infusion of 100 mL Isovue 370 scanning through the abdomen in arterial, venous and delayed phases. Coronal and sagittal reconstructions in the arterial phase are provided. Precontrast scanning was also performed. FINDINGS: CT abdomen: Lung bases are clear. Gastric bypass is evident and there is a prominent the hiatal hernia. Is unchanged. Liver has a vertical diameter 17 cm. No gross hepatomegaly, focal hepatic mass or intrahepatic biliary dilatation. No calcified gallstones are noted. Visualized pancreas was unremarkable. Some of the tail the pancreas extends into the hernia in the lower chest which is the neck, body and proximal tail remainder of the talus in the upper abdomen extending towards the hilus of the spleen. Spleen is unremarkable. Abundant stool in the transverse colon, splenic flexure and moderate stool in the right colon. That portion of left colon seenh as a little stool and no wall thickening or inflammatory change. Small bowel loops without dilatation, wall thickening or inflammatory change adjacent. There is atherosclerotic calcification of the aorta without aneurysm. No periaortic, other retroperitoneal or mesenteric pathologic sized lymphadenopathy. There is a supraumbilical midline ventral hernia with only omental fat in it and no bowel herniation. The kidneys show extrarenal pelvis, left greater than right. There is a cyst on the left side, about 1 cm and cortical. No stone or hydronephrosis. The ultrasound contour irregularity of the liver is seen is a variation in the liver contour and all of the previous CTs dating back several years and I believe this represents a anatomic variation in this patient. There is no true mass. It is an isolated protrusion of liver but its size and appearance are stable and isodense to the remainder of the liver on all phases. IMPRESSION: 1. No evidence of an hepatic mass. The contour abnormality seen on ultrasound is seen as an anatomic variation on the current and all prior CTs without interval change. It is isodense on all sequences to the normal liver parenchyma. No further follow-up is needed for this finding. 2. Moderate retained stool right and transverse colon to the splenic flexure with no sign of colitis or diverticulitis in the upper abdomen. 3. Midline supraumbilical ventral hernia with only omental fat and no bowel herniation. 4. Kidneys with the no hydronephrosis but with extrarenal pelvis left greater than right and with a small cortical cyst on the left. 5. Atherosclerotic calcifications aorta without aneurysm or dissection. No abdominal adenopathy. Spleen, pancreas and adrenal glands are without acute finding. Gallbladder without calcified stones. 6. Large hiatal hernia with gastric bypass changes and a portion of the pancreas extends into this hernia involving neck, body and proximal tail region. No other significant finding. <Electronically signed by Jeremy Higginbotham > 05/31/21 [id number]
== END ==
LOC: M PLAIMG 12:27
PROVIDERS: ATTEND Internal Medicine
DX: D49.0 Neoplasm of unspecified behavior of digestive system (principal); K44.9 Diaphragmatic hernia without obstruction or gangrene
CPT/HCPCS: 74170; Q9963; Q9967

== ENCOUNTER → 2021-09-06 | Outpatient (REF) | payer BC, MEDICARE ==
[~2021-09-06] MED LIST changes: -GASTROGRAFIN SOLUTION 30ML (Q9963) ONE; -ISOVUE-370 76% 100ML VIAL ONE
[2021-09-06 16:57] LABS: IRON (FE) 156 UG/DL (65-175); PERCENT SATURATION 31.5 % (19.7-50.0); TOTAL IRON BINDING CAPACITY 496 UG/DL (250-450)
[2021-09-06 17:10] LABS: FOLATE 7.4 NG/ML; VITAMIN B12 LEVEL > 2000 PG/ML
== END ==
LOC: M LAB REF 16:07
PROVIDERS: ATTEND Internal Medicine
DX: D50.9 Iron deficiency anemia, unspecified (principal); D51.9 Vitamin B12 deficiency anemia, unspecified

== ENCOUNTER 2021-09-24 12:07 | Emergency (ER) | payer BC, MEDICARE ==
[~2021-09-24] VITALS: Ht 172.7 cm; Wt 84.5 kg
[2021-09-24] MEDS ORDERED: RANO500T2 PO (12:34)
[2021-09-24] MEDS ORDERED: EZET10TA21 PO (12:34)
[2021-09-24 13:46] LABS: BASO % 0.3 % (0.0-1.0); EOS % 0.4 % (0.0-3.0); HEMATOCRIT 38.4 % (42.0-52.0); LYMPH # 1.4 10^3/uL (1.5-5.0); LYMPH % 19.4 % (24.0-44.0); MEAN CORPUSCULAR HEMOGLOBIN 31.6 pg (27.0-33.0); MEAN CORPUSCULAR HGB CONC 33.9 g/dl (32.0-36.5); MEAN CORPUSCULAR VOLUME 93.4 fl (80.0-96.0); MONO # 0.8 10^3/uL (0.0-0.8); MONO % 11.5 % (2.0-8.0); NEUTROPHILS # 4.9 10^3/uL (1.5-8.5); PLATELET COUNT, AUTOMATED 198 10^3/uL (150-450); RED BLOOD COUNT 4.11 10^6/uL (4.30-6.10); WHITE BLOOD COUNT 7.1 10^3/uL (4.0-10.0)
[2021-09-24 13:57] LABS: INR 0.99; PROTHROMBIN TIME 13.5 SECONDS (12.7-14.5)
[2021-09-24 13:58] LABS: PARTIAL THROMBOPLASTIN TIME 28.7 SECONDS (25.9-37.0)
[2021-09-24 14:16] LABS: BILIRUBIN,DIRECT 0.3 MG/DL (0.0-0.2); BILIRUBIN,TOTAL 1.2 MG/DL (0.2-1.0); CALCIUM LEVEL 8.7 MG/DL (8.8-10.2); CREATININE FOR GFR 1.47 MG/DL (0.70-1.30); GLOMERULAR FILTRATION RATE 50.9 (>49); POTASSIUM SERUM 4.4 MEQ/L (3.5-5.1); TOTAL PROTEIN 7.2 GM/DL (6.4-8.2)
[2021-09-24] MEDS ORDERED: HEPARIN SOD (PORCINE) 5000UNITS/ML 1ML VIAL/SYRINGE IV ONE (14:30)
[2021-09-24] MEDS ORDERED: CLOPIDOGREL 300 MG TAB (PLAVIX) PO ONE (14:30)
[2021-09-24] MEDS ORDERED: HEPARIN DRIP 25,000 UNITS in IV 1 EA IV SCH (14:30)
[2021-09-24 14:48] LABS: RSV AMPLIFICATION NEGATIVE (NEGATIVE)
[2021-09-24 16:18] VITALS: BP 151/83
== END 2021-09-24 16:26 | disposition short-term general hospital (02) ==
LOC: M ED 12:07
DX: I21.4 Non-ST elevation (NSTEMI) myocardial infarction (principal); I20.0 Unstable angina; I44.0 Atrioventricular block, first degree; I50.9 Heart failure, unspecified; I25.2 Old myocardial infarction; Z88.8 Allergy status to other drugs, medicaments and biological substances; Z95.5 Presence of coronary angioplasty implant and graft; Z79.899 Other long term (current) drug therapy; Z79.82 Long term (current) use of aspirin
CPT/HCPCS: 71045; 80048; 80076; 83690; 83880; 84484; 85025; 85610; 85730; 87631; 93005; 93041; 94760; 96365; 96366; 99291; J1644

== ENCOUNTER 2021-11-15 10:27 | Inpatient (IN) | payer BC, MEDICARE ==
[~2021-11-15] VITALS: Ht 172.7 cm; Wt 79.3 kg
[2021-11-15] VITALS (10 sets, daily range): BP systolic 94–156; BP diastolic 62–76
[~2021-11-15 10:27] MED LIST changes: +EZET10TA21 PO; +RANO500T2 PO
[2021-11-15 11:17] LABS: BASO % 0.3 % (0.0-1.0); EOS # 0.1 10^3/uL (0.0-0.5); EOS % 0.7 % (0.0-3.0); HEMATOCRIT 23.1 % (42.0-52.0); HEMOGLOBIN 7.4 g/dl (13.5-17.5); LYMPH # 1.1 10^3/uL (1.5-5.0); LYMPH % 12.2 % (24.0-44.0); MEAN CORPUSCULAR HEMOGLOBIN 30.1 pg (27.0-33.0); MEAN CORPUSCULAR VOLUME 93.9 fl (80.0-96.0); MONO # 0.8 10^3/uL (0.0-0.8); MONO % 8.4 % (2.0-8.0); NEUTROPHILS # 7.3 10^3/uL (1.5-8.5); NEUTROPHILS % 78.1 % (36.0-66.0); PLATELET COUNT, AUTOMATED 235 10^3/uL (150-450); RED BLOOD COUNT 2.46 10^6/uL (4.30-6.10); WHITE BLOOD COUNT 9.3 10^3/uL (4.0-10.0)
[2021-11-15 11:28] LABS: INR 1.57; PROTHROMBIN TIME 19.2 SECONDS (12.7-14.5)
[2021-11-15 11:29] LABS: PARTIAL THROMBOPLASTIN TIME 30.9 SECONDS (25.9-37.0)
[2021-11-15 11:40] LABS: AMPHETAMINES LEVEL URINE NEGATIVE (NEGATIVE); BARBITURATES URINE NEGATIVE (NEGATIVE); BENZODIAZEPINES URINE NEGATIVE (NEGATIVE); CANNABINOIDS URINE NEGATIVE (NEGATIVE); COCAINE METABOLITE URINE NEGATIVE (NEGATIVE); METHADONE URINE NEGATIVE (NEGATIVE); OPIATES URINE NEGATIVE (NEGATIVE); PHENCYCLIDINE URINE NEGATIVE (NEGATIVE)
[2021-11-15 11:44] LABS: CK-MB VALUE MASS 2.1 NG/ML (<3.6); MB/CK RELATIVE INDEX 2.41 (< OR =4)
[2021-11-15 11:49] LABS: BLOOD UREA NITROGEN 35 MG/DL (7-18); CALCIUM LEVEL 8.3 MG/DL (8.8-10.2); CARBON DIOXIDE LEVEL 22 MEQ/L (21-32); CHLORIDE LEVEL 113 MEQ/L (98-107); CREATININE FOR GFR 1.59 MG/DL (0.70-1.30); ETHYL ALCOHOL (ETHANOL) < 0.003 % (0.000-0.010); FREE T4 0.88 NG/DL (0.76-1.46); GLOMERULAR FILTRATION RATE 46.5 (>49); GLUCOSE, FASTING 189 MG/DL (70-100); POTASSIUM SERUM 3.8 MEQ/L (3.5-5.1); SODIUM LEVEL 141 MEQ/L (136-145)
[2021-11-15] MEDS ORDERED: REPA140I2 SC (12:20)
[2021-11-15] MEDS ORDERED: ELIQ5TAB PO (12:20)
[2021-11-15] MEDS ORDERED: METO1TAB32 PO (12:20)
[2021-11-15] MEDS ORDERED: AMIO200T49 PO (12:20)
[2021-11-15] MEDS ORDERED: FURO40TA2 PO (12:20)
[2021-11-15] MEDS ORDERED: CLOP75TA2 PO (12:20)
[2021-11-15 12:45] LABS: CK-MB VALUE MASS 1.5 NG/ML (<3.6); MB/CK RELATIVE INDEX 1.61 (< OR =4)
[2021-11-15] MEDS ORDERED: PANTOPRAZOLE 40MG VIAL IV ONE (13:35)
[2021-11-15] MEDS ORDERED: ACETAMINOPHEN TAB 650MG DOSE (2X325MG) PO PRN (14:35)
[2021-11-15] MEDS: NS 1,000 ML IV SCH (14:40)
[2021-11-15] MEDS ORDERED: GLUCAGON INJ 1MG VIAL SC PRN (15:05)
[2021-11-15] MEDS ORDERED: GLUCOSE 4GM CHEW TABLET PO PRN (15:05)
[2021-11-15] MEDS ORDERED: DEXTROSE 50% 50 ML SYRINGE IV PRN (15:05)
[2021-11-15 15:54] LABS: CK-MB VALUE MASS 1.5 NG/ML (<3.6); MB/CK RELATIVE INDEX 1.76 (< OR =4)
[2021-11-15] MEDS ORDERED: HOME MED LIST COMPLETE! XX SCH (16:15)
[2021-11-15 16:19] LABS: RSV AMPLIFICATION NEGATIVE (NEGATIVE)
[2021-11-15] MEDS: INSULIN LISPRO (NovoLOG) PER UNIT SC SCH ×2 (17:30→21:00)
[2021-11-15 21:35] LABS: CK-MB VALUE MASS 1.2 NG/ML (<3.6); MB/CK RELATIVE INDEX 1.71 (< OR =4)
[2021-11-16] MEDS: PANTOPRAZOLE 40MG VIAL IV SCH ×3 (00:29→21:44)
[2021-11-16 00:35] VITALS: BP 129/60
[2021-11-16] MEDS: NS 1,000 ML IV SCH (00:35)
[2021-11-16 03:27] LABS: CK-MB VALUE MASS 1.4 NG/ML (<3.6); MB/CK RELATIVE INDEX 2.33 (< OR =4)
[2021-11-16 05:03] VITALS: BP 121/77
[2021-11-16 07:15] LABS: BASO % 0.6 % (0.0-1.0); EOS # 0.1 10^3/uL (0.0-0.5); EOS % 2.7 % (0.0-3.0); HEMATOCRIT 26.1 % (42.0-52.0); HEMOGLOBIN 8.5 g/dl (13.5-17.5); LYMPH # 1.4 10^3/uL (1.5-5.0); MEAN CORPUSCULAR HGB CONC 32.6 g/dl (32.0-36.5); MEAN CORPUSCULAR VOLUME 89.1 fl (80.0-96.0); MONO # 0.6 10^3/uL (0.0-0.8); MONO % 11.9 % (2.0-8.0); NEUTROPHILS % 57.4 % (36.0-66.0); PLATELET COUNT, AUTOMATED 204 10^3/uL (150-450); RED BLOOD COUNT 2.93 10^6/uL (4.30-6.10); WHITE BLOOD COUNT 5.2 10^3/uL (4.0-10.0)
[2021-11-16] MEDS: INSULIN LISPRO (NovoLOG) PER UNIT SC SCH ×4 (07:30→20:36)
[2021-11-16 07:39] LABS: HEMOGLOBIN A1c 6.1 %
[2021-11-16 07:45] LABS: ALBUMIN 2.9 GM/DL (3.2-5.2); BILIRUBIN,TOTAL 1.5 MG/DL (0.2-1.0); CREATININE FOR GFR 1.34 MG/DL (0.70-1.30); GLOMERULAR FILTRATION RATE 56.6 (>49); MAGNESIUM LEVEL 1.9 MG/DL (1.8-2.4); TOTAL PROTEIN 5.4 GM/DL (6.4-8.2)
[2021-11-16] MEDS: FUROSEMIDE 40 MG TAB PO SCH ×2 (08:38→17:30)
[2021-11-16] MEDS: RANOLAZINE 500 MG ER TAB PO SCH ×2 (08:38→21:44)
[2021-11-16] MEDS ORDERED: EVOLOCUMAB 140 MG/ML SC SCH (09:00)
[2021-11-16] MEDS ORDERED: CLOPIDOGREL 75 MG TAB PO SCH (09:30)
[2021-11-16] MEDS ORDERED: propofoL 200 MG/20 ML VIAL As Ordered ONE (09:44)
[2021-11-16] MEDS ORDERED: LIDOCAINE 2% 100MG/5ML SDV (FOR ANES.) As Ordered ONE (09:45)
[2021-11-16] MEDS ORDERED: ONDANSETRON 4MG/2ML VIAL IV PRN (12:35)
[2021-11-16] MEDS ORDERED: LR 1,000 ML IV SCH (12:35)
[2021-11-16] MEDS: CLOPIDOGREL 75 MG TAB PO SCH (12:49)
[2021-11-16 14:00] VITALS: BP 131/64
[2021-11-16 18:00] VITALS: BP 130/64
[2021-11-16] MEDS ORDERED: EZETIMIBE 10MG TABLET (ZETIA) PO SCH (21:00)
[2021-11-16] MEDS ORDERED: AMIODARONE 200 MG TAB (PACERONE) PO SCH (21:00)
[2021-11-16] MEDS ORDERED: METOPROLOL SUCC *XL* 25MG TAB (TopROL *XL*) PO SCH (21:00)
[2021-11-16 21:45] VITALS: BP 129/66
[2021-11-17 05:21] VITALS: BP 104/64
[2021-11-17 05:41] LABS: BASO % 0.3 % (0.0-1.0); EOS # 0.2 10^3/uL (0.0-0.5); EOS % 2.7 % (0.0-3.0); HEMATOCRIT 26.7 % (42.0-52.0); HEMOGLOBIN 8.7 g/dl (13.5-17.5); LYMPH # 1.7 10^3/uL (1.5-5.0); LYMPH % 25.3 % (24.0-44.0); MEAN CORPUSCULAR HEMOGLOBIN 29.6 pg (27.0-33.0); MEAN CORPUSCULAR HGB CONC 32.6 g/dl (32.0-36.5); MEAN CORPUSCULAR VOLUME 90.8 fl (80.0-96.0); MONO # 0.8 10^3/uL (0.0-0.8); MONO % 12.3 % (2.0-8.0); NEUTROPHILS % 59.1 % (36.0-66.0); PLATELET COUNT, AUTOMATED 213 10^3/uL (150-450); RED BLOOD COUNT 2.94 10^6/uL (4.30-6.10); WHITE BLOOD COUNT 6.7 10^3/uL (4.0-10.0)
[2021-11-17 05:51] LABS: ALBUMIN 3.1 GM/DL (3.2-5.2); BILIRUBIN,TOTAL 0.9 MG/DL (0.2-1.0); CALCIUM LEVEL 8.5 MG/DL (8.8-10.2); CREATININE FOR GFR 1.61 MG/DL (0.70-1.30); GLOMERULAR FILTRATION RATE 45.8 (>49); POTASSIUM SERUM 3.9 MEQ/L (3.5-5.1); TOTAL PROTEIN 5.9 GM/DL (6.4-8.2)
[2021-11-17] MEDS ORDERED: NS 1,000 ML IV SCH (08:00)
[2021-11-17] MEDS: PANTOPRAZOLE 40MG VIAL IV SCH (08:22)
[2021-11-17] MEDS: CLOPIDOGREL 75 MG TAB PO SCH (08:22)
[2021-11-17] MEDS: RANOLAZINE 500 MG ER TAB PO SCH (08:22)
[2021-11-17] MEDS: INSULIN LISPRO (NovoLOG) PER UNIT SC SCH ×2 (08:23→12:00)
[2021-11-17 10:08] VITALS: BP 136/69
[2021-11-17 10:40] LABS: HEMATOCRIT 26.6 % (42.0-52.0); HEMOGLOBIN 8.5 g/dl (13.5-17.5)
[2021-11-17 11:05] LABS: CK-MB VALUE MASS 1.3 NG/ML (<3.6); MB/CK RELATIVE INDEX 2.65 (< OR =4)
[2021-11-17 11:50] VITALS: BP_SYST 106; BP_SYST 122; BP_SYST 90; BP_DIAS 58; BP_DIAS 62; BP_DIAS 66
[2021-11-17 13:31] VITALS: BP 121/56
[2021-11-17 16:00] VITALS: BP_SYST 108; BP_SYST 116; BP_DIAS 60; BP_DIAS 64; BP_DIAS 66
[2021-11-17 16:16] LABS: HEMATOCRIT 27.2 % (42.0-52.0); HEMOGLOBIN 8.7 g/dl (13.5-17.5)
[2021-11-17 16:41] LABS: CALCIUM LEVEL 8.7 MG/DL (8.8-10.2); CREATININE FOR GFR 1.6 MG/DL (0.70-1.30); GLOMERULAR FILTRATION RATE 46.1 (>49); POTASSIUM SERUM 3.8 MEQ/L (3.5-5.1)
[2021-11-17 16:45] LABS: CK-MB VALUE MASS 1.2 NG/ML (<3.6); MB/CK RELATIVE INDEX 2.26 (< OR =4)
== END 2021-11-17 17:53 | disposition home health service (06) | DRG 663 ==
LOC: M ED 10:27 → EDBD 10:27 → M ED INP 14:32 → ENRESERV 16:51 → M MSPAV 18:22
PROVIDERS: ADMIT Family Medicine; ATTEND Family Medicine
PROC: 30233N1 Transfusion of Nonautologous Red Blood Cells into Peripheral Vein, Percutaneous Approach (ICD-10-PCS; 2021-11-15)
PROC: 0DJ08ZZ Inspection of Upper Intestinal Tract, Via Natural or Artificial Opening Endoscopic (ICD-10-PCS; principal; 2021-11-16 10:30)
DX: D62 Acute posthemorrhagic anemia (principal); N17.9 Acute kidney failure, unspecified; I49.5 Sick sinus syndrome; I48.91 Unspecified atrial fibrillation; K92.1 Melena; I25.10 Atherosclerotic heart disease of native coronary artery without angina pectoris; I25.2 Old myocardial infarction; I10 Essential (primary) hypertension; E11.9 Type 2 diabetes mellitus without complications; K21.9 Gastro-esophageal reflux disease without esophagitis; K44.9 Diaphragmatic hernia without obstruction or gangrene; E78.5 Hyperlipidemia, unspecified; Z79.01 Long term (current) use of anticoagulants; Z79.899 Other long term (current) drug therapy; Z88.8 Allergy status to other drugs, medicaments and biological substances; Z98.84 Bariatric surgery status; G47.33 Obstructive sleep apnea (adult) (pediatric); N40.0 Benign prostatic hyperplasia without lower urinary tract symptoms; Z95.5 Presence of coronary angioplasty implant and graft; Z95.0 Presence of cardiac pacemaker

== ENCOUNTER 2021-11-19 11:17 | Inpatient (IN) | payer BC, MEDICARE ==
[2021-11-19] VITALS (10 sets, daily range): BP systolic 116–142; BP diastolic 61–77
[~2021-11-19] VITALS: Ht 172.7 cm; Wt 77.6 kg
[~2021-11-19 11:17] MED LIST changes: +AMIO200T49 PO; +CLOP75TA2 PO; +ELIQ5TAB PO; +FURO40TA2 PO; +METO1TAB32 PO; +REPA140I2 SC
[2021-11-19] MEDS ORDERED: LASI40TA9 PO (11:49)
[2021-11-19] MEDS ORDERED: AMIO200T37 PO (11:49)
[2021-11-19 12:52] LABS: BASO % 0.5 % (0.0-1.0); EOS % 0.5 % (0.0-3.0); HEMATOCRIT 22.6 % (42.0-52.0); HEMOGLOBIN 7.3 g/dl (13.5-17.5); LYMPH # 1.5 10^3/uL (1.5-5.0); LYMPH % 24.2 % (24.0-44.0); MEAN CORPUSCULAR HEMOGLOBIN 29.1 pg (27.0-33.0); MEAN CORPUSCULAR HGB CONC 32.3 g/dl (32.0-36.5); MONO # 0.6 10^3/uL (0.0-0.8); MONO % 9.5 % (2.0-8.0); NEUTROPHILS # 4.1 10^3/uL (1.5-8.5); PLATELET COUNT, AUTOMATED 221 10^3/uL (150-450); RED BLOOD COUNT 2.51 10^6/uL (4.30-6.10); WHITE BLOOD COUNT 6.3 10^3/uL (4.0-10.0)
[2021-11-19 13:23] LABS: CALCIUM LEVEL 8.1 MG/DL (8.8-10.2); CREATININE FOR GFR 1.59 MG/DL (0.70-1.30); GLOMERULAR FILTRATION RATE 46.5 (>49); POTASSIUM SERUM 3.3 MEQ/L (3.5-5.1)
[2021-11-19 13:23] LABS: RSV AMPLIFICATION NEGATIVE (NEGATIVE)
[2021-11-19] MEDS ORDERED: ICAPTAB PO (13:48)
[2021-11-19] MEDS ORDERED: HOME MED LIST COMPLETE! XX SCH (13:50)
[2021-11-19] MEDS ORDERED: ACETAMINOPHEN TAB 650MG DOSE (2X325MG) PO PRN (14:40)
[2021-11-19] MEDS ORDERED: DEXTROSE 50% 50 ML SYRINGE IV PRN (15:55)
[2021-11-19] MEDS ORDERED: GLUCAGON INJ 1MG VIAL SC PRN (15:55)
[2021-11-19] MEDS ORDERED: GLUCOSE 4GM CHEW TABLET PO PRN (15:55)
[2021-11-19] MEDS: PANTOPRAZOLE 40MG VIAL IV SCH (18:00)
[2021-11-19] MEDS: HumaLOG INSULIN (NovoLOG) PER UNIT SC SCH ×2 (18:41→23:59)
[2021-11-19] MEDS: AMIODARONE 200 MG TAB (PACERONE) PO SCH (22:33)
[2021-11-19] MEDS: EZETIMIBE 10MG TABLET (ZETIA) PO SCH (22:33)
[2021-11-19] MEDS: CLOPIDOGREL 75 MG TAB PO SCH (22:33)
[2021-11-19] MEDS: METOPROLOL SUCC *XL* 25MG TAB (TopROL *XL*) PO SCH (22:36)
[2021-11-20] MEDS: RANOLAZINE 500 MG ER TAB PO SCH ×3 (00:42→21:31)
[2021-11-20] MEDS: PANTOPRAZOLE 40MG VIAL IV SCH ×2 (03:55→16:12)
[2021-11-20] MEDS: HumaLOG INSULIN (NovoLOG) PER UNIT SC SCH ×4 (07:30→20:40)
[2021-11-20 08:20] LABS: HEMATOCRIT 27.7 % (42.0-52.0); HEMOGLOBIN 9.1 g/dl (13.5-17.5); MEAN CORPUSCULAR HEMOGLOBIN 29.2 pg (27.0-33.0); MEAN CORPUSCULAR HGB CONC 32.9 g/dl (32.0-36.5); MEAN CORPUSCULAR VOLUME 88.8 fl (80.0-96.0); PLATELET COUNT, AUTOMATED 170 10^3/uL (150-450); RED BLOOD COUNT 3.12 10^6/uL (4.30-6.10)
[2021-11-20 08:47] LABS: CALCIUM LEVEL 8.7 MG/DL (8.8-10.2); CREATININE FOR GFR 1.3 MG/DL (0.70-1.30); GLOMERULAR FILTRATION RATE 58.6 (>49); MAGNESIUM LEVEL 2.2 MG/DL (1.8-2.4); POTASSIUM SERUM 3.8 MEQ/L (3.5-5.1)
[2021-11-20 17:05] VITALS: BP 165/77
[2021-11-20 20:00] VITALS: BP 156/73
[2021-11-20] MEDS: CLOPIDOGREL 75 MG TAB PO SCH (20:24)
[2021-11-20] MEDS: EZETIMIBE 10MG TABLET (ZETIA) PO SCH (20:24)
[2021-11-20] MEDS: AMIODARONE 200 MG TAB (PACERONE) PO SCH (20:24)
[2021-11-20] MEDS: METOPROLOL SUCC *XL* 25MG TAB (TopROL *XL*) PO SCH (20:25)
[2021-11-21] VITALS: BP 110/58
[2021-11-21 04:00] VITALS: BP 133/70
[2021-11-21] MEDS: PANTOPRAZOLE 40MG VIAL IV SCH ×2 (04:55→14:48)
[2021-11-21 05:41] LABS: HEMATOCRIT 26.1 % (42.0-52.0); HEMOGLOBIN 8.4 g/dl (13.5-17.5); MEAN CORPUSCULAR HEMOGLOBIN 28.9 pg (27.0-33.0); MEAN CORPUSCULAR HGB CONC 32.2 g/dl (32.0-36.5); MEAN CORPUSCULAR VOLUME 89.7 fl (80.0-96.0); PLATELET COUNT, AUTOMATED 169 10^3/uL (150-450); RED BLOOD COUNT 2.91 10^6/uL (4.30-6.10); WHITE BLOOD COUNT 5.4 10^3/uL (4.0-10.0)
[2021-11-21 05:59] LABS: CALCIUM LEVEL 8.3 MG/DL (8.8-10.2); CREATININE FOR GFR 1.29 MG/DL (0.70-1.30); GLOMERULAR FILTRATION RATE 59.1 (>49); POTASSIUM SERUM 3.4 MEQ/L (3.5-5.1)
[2021-11-21 08:00] VITALS: BP 136/72
[2021-11-21] MEDS: HumaLOG INSULIN (NovoLOG) PER UNIT SC SCH ×4 (08:24→20:07)
[2021-11-21] MEDS: RANOLAZINE 500 MG ER TAB PO SCH ×2 (08:25→20:04)
[2021-11-21 12:00] VITALS: BP 129/67
[2021-11-21] MEDS ORDERED: POTASSIUM CHLORIDE 10MEQ SR TABLET PO ONE (12:00)
[2021-11-21 16:00] VITALS: BP 131/73
[2021-11-21 16:12] LABS: HEMATOCRIT 26.5 % (42.0-52.0); HEMOGLOBIN 8.5 g/dl (13.5-17.5)
[2021-11-21 20:00] VITALS: BP 137/68
[2021-11-21] MEDS: AMIODARONE 200 MG TAB (PACERONE) PO SCH (20:04)
[2021-11-21] MEDS: METOPROLOL SUCC *XL* 25MG TAB (TopROL *XL*) PO SCH (20:04)
[2021-11-21] MEDS: CLOPIDOGREL 75 MG TAB PO SCH (20:04)
[2021-11-21] MEDS: EZETIMIBE 10MG TABLET (ZETIA) PO SCH (20:04)
[2021-11-22] VITALS (8 sets, daily range): BP systolic 104–134; BP diastolic 58–70
[2021-11-22] MEDS: PANTOPRAZOLE 40MG VIAL IV SCH ×2 (03:04→15:07)
[2021-11-22 05:46] LABS: HEMATOCRIT 24.6 % (42.0-52.0); HEMOGLOBIN 7.8 g/dl (13.5-17.5); MEAN CORPUSCULAR HEMOGLOBIN 28.7 pg (27.0-33.0); MEAN CORPUSCULAR HGB CONC 31.7 g/dl (32.0-36.5); MEAN CORPUSCULAR VOLUME 90.4 fl (80.0-96.0); PLATELET COUNT, AUTOMATED 169 10^3/uL (150-450); RED BLOOD COUNT 2.72 10^6/uL (4.30-6.10); WHITE BLOOD COUNT 5.6 10^3/uL (4.0-10.0)
[2021-11-22 06:04] LABS: BLOOD UREA NITROGEN 22 MG/DL (7-18); CALCIUM LEVEL 8.1 MG/DL (8.8-10.2); CARBON DIOXIDE LEVEL 25 MEQ/L (21-32); CHLORIDE LEVEL 114 MEQ/L (98-107); CREATININE FOR GFR 1.27 MG/DL (0.70-1.30); GLOMERULAR FILTRATION RATE > 60.0 (>49); GLUCOSE, FASTING 128 MG/DL (70-100); POTASSIUM SERUM 3.6 MEQ/L (3.5-5.1); SODIUM LEVEL 147 MEQ/L (136-145)
[2021-11-22] MEDS: RANOLAZINE 500 MG ER TAB PO SCH ×2 (07:56→20:46)
[2021-11-22] MEDS: HumaLOG INSULIN (NovoLOG) PER UNIT SC SCH ×4 (07:56→20:47)
[2021-11-22] MEDS ORDERED: ISOVUE-370 76% 100ML VIAL As Ordered ONE (12:22)
[2021-11-22] MEDS: AMIODARONE 200 MG TAB (PACERONE) PO SCH (20:46)
[2021-11-22] MEDS: EZETIMIBE 10MG TABLET (ZETIA) PO SCH (20:46)
[2021-11-22] MEDS: CLOPIDOGREL 75 MG TAB PO SCH (20:46)
[2021-11-22] MEDS: METOPROLOL SUCC *XL* 25MG TAB (TopROL *XL*) PO SCH (20:47)
[2021-11-22 22:37] LABS: HEMATOCRIT 29.4 % (42.0-52.0); HEMOGLOBIN 9.6 g/dl (13.5-17.5)
[2021-11-23] VITALS: BP 103/54
[2021-11-23] MEDS: PANTOPRAZOLE 40MG VIAL IV SCH ×2 (03:29→17:17)
[2021-11-23 04:00] VITALS: BP 130/76
[2021-11-23 05:12] LABS: HEMATOCRIT 27.1 % (42.0-52.0); HEMOGLOBIN 8.7 g/dl (13.5-17.5); MEAN CORPUSCULAR HEMOGLOBIN 28.7 pg (27.0-33.0); MEAN CORPUSCULAR HGB CONC 32.1 g/dl (32.0-36.5); MEAN CORPUSCULAR VOLUME 89.4 fl (80.0-96.0); PLATELET COUNT, AUTOMATED 165 10^3/uL (150-450); RED BLOOD COUNT 3.03 10^6/uL (4.30-6.10); WHITE BLOOD COUNT 6.6 10^3/uL (4.0-10.0)
[2021-11-23 05:33] LABS: CALCIUM LEVEL 8.2 MG/DL (8.8-10.2); CREATININE FOR GFR 1.3 MG/DL (0.70-1.30); GLOMERULAR FILTRATION RATE 58.6 (>49); POTASSIUM SERUM 4.2 MEQ/L (3.5-5.1)
[2021-11-23] MEDS: HumaLOG INSULIN (NovoLOG) PER UNIT SC SCH ×4 (07:59→20:44)
[2021-11-23] MEDS: RANOLAZINE 500 MG ER TAB PO SCH ×2 (07:59→20:43)
[2021-11-23 08:00] VITALS: BP 132/70
[2021-11-23 12:00] VITALS: BP 160/40
[2021-11-23 16:00] VITALS: BP 162/40
[2021-11-23 20:00] VITALS: BP 129/62
[2021-11-23] MEDS: METOPROLOL SUCC *XL* 25MG TAB (TopROL *XL*) PO SCH (20:43)
[2021-11-23] MEDS: CLOPIDOGREL 75 MG TAB PO SCH (20:43)
[2021-11-23] MEDS: EZETIMIBE 10MG TABLET (ZETIA) PO SCH (20:43)
[2021-11-23] MEDS: AMIODARONE 200 MG TAB (PACERONE) PO SCH (20:43)
[2021-11-24] VITALS (9 sets, daily range): BP systolic 113–131; BP diastolic 59–69
[2021-11-24] MEDS: PANTOPRAZOLE 40MG VIAL IV SCH ×2 (03:52→18:37)
[2021-11-24 04:53] LABS: HEMATOCRIT 25.4 % (42.0-52.0); HEMOGLOBIN 8.3 g/dl (13.5-17.5); MEAN CORPUSCULAR HEMOGLOBIN 29.2 pg (27.0-33.0); MEAN CORPUSCULAR HGB CONC 32.7 g/dl (32.0-36.5); MEAN CORPUSCULAR VOLUME 89.4 fl (80.0-96.0); PLATELET COUNT, AUTOMATED 162 10^3/uL (150-450); RED BLOOD COUNT 2.84 10^6/uL (4.30-6.10); WHITE BLOOD COUNT 6.3 10^3/uL (4.0-10.0)
[2021-11-24 05:12] LABS: CALCIUM LEVEL 7.8 MG/DL (8.8-10.2); CREATININE FOR GFR 1.4 MG/DL (0.70-1.30); GLOMERULAR FILTRATION RATE 53.8 (>49)
[2021-11-24] MEDS: HumaLOG INSULIN (NovoLOG) PER UNIT SC SCH ×4 (08:07→20:35)
[2021-11-24] MEDS: RANOLAZINE 500 MG ER TAB PO SCH ×2 (08:07→20:34)
[2021-11-24] MEDS: NYSTATIN CREAM 15 GM TOP SCH ×2 (09:00→20:38)
[2021-11-24 16:41] LABS: HEMATOCRIT 27.7 % (42.0-52.0); HEMOGLOBIN 8.7 g/dl (13.5-17.5)
[2021-11-24] MEDS: CLOPIDOGREL 75 MG TAB PO SCH (20:34)
[2021-11-24] MEDS: AMIODARONE 200 MG TAB (PACERONE) PO SCH (20:34)
[2021-11-24] MEDS: EZETIMIBE 10MG TABLET (ZETIA) PO SCH (20:34)
[2021-11-24] MEDS: METOPROLOL SUCC *XL* 25MG TAB (TopROL *XL*) PO SCH (20:38)
[2021-11-25] VITALS: BP 108/62
[2021-11-25] MEDS: PANTOPRAZOLE 40MG VIAL IV SCH ×2 (03:53→14:47)
[2021-11-25 04:00] VITALS: BP 104/58
[2021-11-25 05:26] LABS: HEMATOCRIT 27.9 % (42.0-52.0); MEAN CORPUSCULAR HEMOGLOBIN 28.9 pg (27.0-33.0); MEAN CORPUSCULAR HGB CONC 32.3 g/dl (32.0-36.5); MEAN CORPUSCULAR VOLUME 89.7 fl (80.0-96.0); PLATELET COUNT, AUTOMATED 174 10^3/uL (150-450); RED BLOOD COUNT 3.11 10^6/uL (4.30-6.10); WHITE BLOOD COUNT 7.2 10^3/uL (4.0-10.0)
[2021-11-25 05:53] LABS: CREATININE FOR GFR 1.46 MG/DL (0.70-1.30); GLOMERULAR FILTRATION RATE 51.3 (>49); POTASSIUM SERUM 3.8 MEQ/L (3.5-5.1)
[2021-11-25] MEDS: HumaLOG INSULIN (NovoLOG) PER UNIT SC SCH ×4 (07:30→20:44)
[2021-11-25 08:00] VITALS: BP 107/58
[2021-11-25] MEDS: RANOLAZINE 500 MG ER TAB PO SCH ×2 (08:47→20:50)
[2021-11-25 09:40] LABS: INR 1.03; PROTHROMBIN TIME 13.9 SECONDS (12.7-14.5)
[2021-11-25 09:41] LABS: PARTIAL THROMBOPLASTIN TIME 25.7 SECONDS (25.9-37.0)
[2021-11-25] MEDS: NYSTATIN CREAM 15 GM TOP SCH ×2 (11:22→20:51)
[2021-11-25 11:40] VITALS: BP 125/66
[2021-11-25 15:51] VITALS: BP 107/58
[2021-11-25 19:31] VITALS: BP 118/56
[2021-11-25] MEDS: CLOPIDOGREL 75 MG TAB PO SCH (20:50)
[2021-11-25] MEDS: AMIODARONE 200 MG TAB (PACERONE) PO SCH (20:50)
[2021-11-25] MEDS: METOPROLOL SUCC *XL* 25MG TAB (TopROL *XL*) PO SCH (20:50)
[2021-11-25] MEDS: EZETIMIBE 10MG TABLET (ZETIA) PO SCH (20:50)
[2021-11-26 00:03] VITALS: BP 126/65
[2021-11-26] MEDS: PANTOPRAZOLE 40MG VIAL IV SCH ×2 (03:25→15:42)
[2021-11-26 04:12] VITALS: BP 94/53
[2021-11-26 04:14] VITALS: BP 102/56
[2021-11-26 05:35] LABS: HEMOGLOBIN 8.3 g/dl (13.5-17.5); MEAN CORPUSCULAR HEMOGLOBIN 28.9 pg (27.0-33.0); MEAN CORPUSCULAR HGB CONC 31.9 g/dl (32.0-36.5); MEAN CORPUSCULAR VOLUME 90.6 fl (80.0-96.0); PLATELET COUNT, AUTOMATED 177 10^3/uL (150-450); RED BLOOD COUNT 2.87 10^6/uL (4.30-6.10); WHITE BLOOD COUNT 6.2 10^3/uL (4.0-10.0)
[2021-11-26 05:58] LABS: CALCIUM LEVEL 8.1 MG/DL (8.8-10.2); CREATININE FOR GFR 1.37 MG/DL (0.70-1.30); GLOMERULAR FILTRATION RATE 55.2 (>49); POTASSIUM SERUM 3.9 MEQ/L (3.5-5.1)
[2021-11-26 08:00] VITALS: BP 135/63
[2021-11-26] MEDS: NYSTATIN CREAM 15 GM TOP SCH ×2 (08:14→21:30)
[2021-11-26] MEDS: RANOLAZINE 500 MG ER TAB PO SCH ×2 (08:14→21:29)
[2021-11-26] MEDS: HumaLOG INSULIN (NovoLOG) PER UNIT SC SCH ×4 (08:15→21:00)
[2021-11-26 15:56] VITALS: BP 147/79
[2021-11-26 20:15] VITALS: BP 119/60
[2021-11-26] MEDS: METOPROLOL SUCC *XL* 25MG TAB (TopROL *XL*) PO SCH (21:29)
[2021-11-26] MEDS: CLOPIDOGREL 75 MG TAB PO SCH (21:29)
[2021-11-26] MEDS: AMIODARONE 200 MG TAB (PACERONE) PO SCH (21:29)
[2021-11-26] MEDS: EZETIMIBE 10MG TABLET (ZETIA) PO SCH (21:29)
[2021-11-27] VITALS (13 sets, daily range): BP systolic 108–169; BP diastolic 60–70
[2021-11-27] MEDS: PANTOPRAZOLE 40MG VIAL IV SCH ×2 (03:53→15:58)
[2021-11-27 06:03] LABS: HEMATOCRIT 24.4 % (42.0-52.0); HEMOGLOBIN 7.9 g/dl (13.5-17.5); MEAN CORPUSCULAR HEMOGLOBIN 29.2 pg (27.0-33.0); MEAN CORPUSCULAR HGB CONC 32.4 g/dl (32.0-36.5); PLATELET COUNT, AUTOMATED 188 10^3/uL (150-450); RED BLOOD COUNT 2.71 10^6/uL (4.30-6.10); WHITE BLOOD COUNT 6.5 10^3/uL (4.0-10.0)
[2021-11-27 06:31] LABS: CALCIUM LEVEL 8.2 MG/DL (8.8-10.2); CREATININE FOR GFR 1.38 MG/DL (0.70-1.30); GLOMERULAR FILTRATION RATE 54.7 (>49)
[2021-11-27] MEDS: HumaLOG INSULIN (NovoLOG) PER UNIT SC SCH ×4 (09:08→20:35)
[2021-11-27] MEDS: NYSTATIN CREAM 15 GM TOP SCH ×2 (09:09→20:36)
[2021-11-27] MEDS: RANOLAZINE 500 MG ER TAB PO SCH ×2 (09:09→20:35)
[2021-11-27] MEDS: CLOPIDOGREL 75 MG TAB PO SCH (20:34)
[2021-11-27] MEDS: EZETIMIBE 10MG TABLET (ZETIA) PO SCH (20:34)
[2021-11-27] MEDS: AMIODARONE 200 MG TAB (PACERONE) PO SCH (20:34)
[2021-11-27] MEDS: METOPROLOL SUCC *XL* 25MG TAB (TopROL *XL*) PO SCH (20:35)
[2021-11-28 05:00] VITALS: BP 124/59
[2021-11-28 05:12] LABS: HEMATOCRIT 28.7 % (42.0-52.0); HEMOGLOBIN 9.6 g/dl (13.5-17.5); MEAN CORPUSCULAR HEMOGLOBIN 29.6 pg (27.0-33.0); MEAN CORPUSCULAR HGB CONC 33.4 g/dl (32.0-36.5); MEAN CORPUSCULAR VOLUME 88.6 fl (80.0-96.0); PLATELET COUNT, AUTOMATED 180 10^3/uL (150-450); RED BLOOD COUNT 3.24 10^6/uL (4.30-6.10)
[2021-11-28] MEDS: PANTOPRAZOLE 40MG VIAL IV SCH (05:24)
[2021-11-28 05:43] LABS: CALCIUM LEVEL 8.4 MG/DL (8.8-10.2); CREATININE FOR GFR 1.5 MG/DL (0.70-1.30); GLOMERULAR FILTRATION RATE 49.7 (>49); POTASSIUM SERUM 4.3 MEQ/L (3.5-5.1)
[2021-11-28] MEDS: NYSTATIN CREAM 15 GM TOP SCH (07:54)
[2021-11-28] MEDS: RANOLAZINE 500 MG ER TAB PO SCH (07:54)
[2021-11-28] MEDS: HumaLOG INSULIN (NovoLOG) PER UNIT SC SCH (07:54)
[2021-11-28 08:27] VITALS: BP 124/61
[2021-11-28] MEDS ORDERED: PANT40TA29 PO (08:43)
[2021-11-28] MEDS ORDERED: FERR325T3 PO (08:44)
== END 2021-11-28 11:18 | disposition home or self-care (01) | DRG 663 ==
LOC: M ED 11:17 → M ED INP 14:39 → ENRESERV 11-20 13:35 → M PCU 11-20 16:58
PROVIDERS: ADMIT Internal Medicine; ATTEND Internal Medicine
PROC: 30233N1 Transfusion of Nonautologous Red Blood Cells into Peripheral Vein, Percutaneous Approach (ICD-10-PCS; principal; 2021-11-20)
DX: D62 Acute posthemorrhagic anemia (principal); I13.0 Hypertensive heart and chronic kidney disease with heart failure and stage 1 through stage 4 chronic kidney disease, or unspecified chronic kidney disease; E11.22 Type 2 diabetes mellitus with diabetic chronic kidney disease; I50.9 Heart failure, unspecified; I48.92 Unspecified atrial flutter; I25.10 Atherosclerotic heart disease of native coronary artery without angina pectoris; Z95.5 Presence of coronary angioplasty implant and graft; Z79.01 Long term (current) use of anticoagulants; Z95.0 Presence of cardiac pacemaker; K21.9 Gastro-esophageal reflux disease without esophagitis; G47.33 Obstructive sleep apnea (adult) (pediatric); Z98.84 Bariatric surgery status; N40.0 Benign prostatic hyperplasia without lower urinary tract symptoms; Z90.49 Acquired absence of other specified parts of digestive tract; E78.5 Hyperlipidemia, unspecified; I25.2 Old myocardial infarction; Z20.822 Contact with and (suspected) exposure to COVID-19; N18.9 Chronic kidney disease, unspecified; K92.1 Melena; Z79.899 Other long term (current) drug therapy; Z88.8 Allergy status to other drugs, medicaments and biological substances; K44.9 Diaphragmatic hernia without obstruction or gangrene

== ENCOUNTER → 2021-12-09 | Outpatient (REF) | payer BC, MEDICARE ==
[~2021-12-09] MED LIST changes: +AMIO200T37 PO; +FERR325T3 PO; +ICAPTAB PO; +LASI40TA9 PO; +PANT40TA29 PO
== END ==
LOC: M LAB REF 12:35
PROVIDERS: ATTEND Internal Medicine
DX: D50.9 Iron deficiency anemia, unspecified (principal)

== ENCOUNTER 2021-12-10 09:17 | Outpatient (CLI) | payer BC, MEDICARE ==
[2021-12-10 09:54] VITALS: BP 104/56
[2021-12-10 10:12] VITALS: BP 121/59
[2021-12-10 11:58] VITALS: BP 141/64
[2021-12-10 12:15] VITALS: BP 136/84
[2021-12-10 13:35] VITALS: BP 118/63
== END 2021-12-10 13:37 | disposition home or self-care (01) ==
LOC: M INFU 09:17
PROVIDERS: ATTEND Internal Medicine
DX: D64.9 Anemia, unspecified (principal); Z88.8 Allergy status to other drugs, medicaments and biological substances
CPT/HCPCS: 36430; P9016

== ENCOUNTER 2021-12-26 13:26 | Outpatient (CLI) | payer BC, MEDICARE ==
[~2021-12-26] VITALS: Ht 170.2 cm; Wt 76.9 kg
[2021-12-26 13:51] VITALS: BP 109/54
[2021-12-26 15:00] VITALS: BP 121/71
[2021-12-26 16:10] VITALS: BP 140/70
== END 2021-12-26 16:15 | disposition home or self-care (01) ==
LOC: M INFU 13:26
PROVIDERS: ATTEND Internal Medicine
DX: D64.9 Anemia, unspecified (principal); Z88.8 Allergy status to other drugs, medicaments and biological substances
CPT/HCPCS: 36430; P9016

== ENCOUNTER → 2021-12-26 | Outpatient (REF) | payer BC, MEDICARE | LOC: M LAB REF 12:49 | PROVIDERS: ATTEND Internal Medicine | DX: D62 Acute posthemorrhagic anemia (principal) ==

== ENCOUNTER → 2021-12-30 | Outpatient (REF) | payer BC, MEDICARE | LOC: M LAB REF 12:30 | PROVIDERS: ATTEND Internal Medicine | DX: D62 Acute posthemorrhagic anemia (principal) ==

== ENCOUNTER → 2022-01-06 | Outpatient (CLI) | payer BC, MEDICARE ==
[2022-01-06 11:08] LABS: HEMOGLOBIN 8.7 g/dl (13.5-17.5); MEAN CORPUSCULAR HEMOGLOBIN 26.8 pg (27.0-33.0); MEAN CORPUSCULAR VOLUME 89.2 fl (80.0-96.0); PLATELET COUNT, AUTOMATED 191 10^3/uL (150-450); RED BLOOD COUNT 3.25 10^6/uL (4.30-6.10); WHITE BLOOD COUNT 6.1 10^3/uL (4.0-10.0)
== END ==
LOC: M LAB 10:31
PROVIDERS: ATTEND Anesthesiology
DX: Z00.00 Encounter for general adult medical examination without abnormal findings (principal)

== ENCOUNTER → 2022-04-17 | Outpatient (REF) | payer BC, MEDICARE ==
[2022-04-17 17:36] LABS: PERCENT SATURATION 13.4 % (19.7-50.0)
== END ==
LOC: M LAB REF 16:12
PROVIDERS: ATTEND Internal Medicine
DX: D50.0 Iron deficiency anemia secondary to blood loss (chronic) (principal)

== ENCOUNTER → 2022-06-17 | Outpatient (REF) | payer BC, MEDICARE ==
[2022-06-17 15:17] LABS: PERCENT SATURATION 23.5 % (19.7-50.0)
== END ==
LOC: M LAB REF 13:27
PROVIDERS: ATTEND Internal Medicine
DX: D50.0 Iron deficiency anemia secondary to blood loss (chronic) (principal)

== ENCOUNTER 2022-06-27 11:39 | Inpatient (IN) | payer BC, MEDICARE ==
[~2022-06-27] VITALS: Ht 170.2 cm; Wt 77.3 kg
[2022-06-27] MEDS ORDERED: NS 500 ML IV ONE (12:45)
[2022-06-27 12:50] LABS: BASO % 0.1 % (0.0-1.0); EOS # 0.1 10^3/uL (0.0-0.5); EOS % 0.6 % (0.0-3.0); HEMATOCRIT 31.7 % (42.0-52.0); HEMOGLOBIN 9.9 g/dl (13.5-17.5); LYMPH % 12.4 % (24.0-44.0); MEAN CORPUSCULAR HEMOGLOBIN 30.7 pg (27.0-33.0); MEAN CORPUSCULAR HGB CONC 31.2 g/dl (32.0-36.5); MEAN CORPUSCULAR VOLUME 98.1 fl (80.0-96.0); MONO # 0.5 10^3/uL (0.0-0.8); MONO % 6.8 % (2.0-8.0); NEUTROPHILS # 6.4 10^3/uL (1.5-8.5); NEUTROPHILS % 79.7 % (36.0-66.0); PLATELET COUNT, AUTOMATED 165 10^3/uL (150-450); RED BLOOD COUNT 3.23 10^6/uL (4.30-6.10)
[2022-06-27 13:08] LABS: ALBUMIN 3.2 G/DL (3.2-5.2); BILIRUBIN,DIRECT 0.3 MG/DL (<0.4); BILIRUBIN,TOTAL 0.6 MG/DL (0.3-1.2); CALCIUM LEVEL 7.4 MG/DL (8.3-10.6); CK-MB VALUE MASS 1.2 NG/ML (<3.6); CREATININE FOR GFR 1.44 MG/DL (0.70-1.30); GLOMERULAR FILTRATION RATE 52.1 (>49); MB/CK RELATIVE INDEX 1.11 (< OR =4); POTASSIUM SERUM 4.5 MMOL/L (3.5-5.1); TOTAL PROTEIN 6.2 G/DL (5.7-8.2)
[2022-06-27 13:09] LABS: THYROID STIMULATING HORMONE 7.613 uIU/ML (0.55-4.78)
[2022-06-27 13:10] LABS: FREE T4 0.97 NG/DL (0.89-1.76)
[2022-06-27 14:19] LABS: CK-MB VALUE MASS < 1.0 NG/ML (<3.6)
[2022-06-27 14:20] LABS: CPK CREATINE PHOSPHOKINASE 102 U/L (46-171); MB/CK RELATIVE INDEX 0.98 (< OR =4)
[2022-06-27] MEDS ORDERED: ICAPCAP2 PO (16:44)
[2022-06-27] MEDS ORDERED: PANT40TA29 PO (16:48)
[2022-06-27] MEDS ORDERED: FERR325T3 PO (16:48)
[2022-06-27] MEDS ORDERED: LEVO25TA5 PO (16:49)
[2022-06-27] MEDS ORDERED: HOME MED LIST COMPLETE! XX SCH (16:50)
[2022-06-27] MEDS ORDERED: FURO20TA2 PO (16:50)
[2022-06-27] MEDS ORDERED: ASPI81CH48 PO (16:50)
[2022-06-27 16:56] LABS: CK-MB VALUE MASS < 1.0 NG/ML (<3.6)
[2022-06-27] MEDS ORDERED: GLUCAGON INJ 1MG VIAL SC PRN (17:00)
[2022-06-27] MEDS ORDERED: GLUCOSE 4GM CHEW TABLET PO PRN (17:00)
[2022-06-27] MEDS ORDERED: DEXTROSE 50% 50 ML SYRINGE IV PRN (17:00)
[2022-06-27] MEDS ORDERED: ACETAMINOPHEN TAB 650MG DOSE (2X325MG) PO PRN (17:00)
[2022-06-27 17:08] LABS: CPK CREATINE PHOSPHOKINASE 96 U/L (46-171); MB/CK RELATIVE INDEX 1.04 (< OR =4)
[2022-06-27] MEDS: INSULIN LISPRO (NovoLOG) PER UNIT SC SCH (17:30)
[2022-06-27 18:42] LABS: RSV AMPLIFICATION NEGATIVE (NEGATIVE)
[2022-06-27] MEDS: METOPROLOL SUCC *XL* 25MG TAB (TopROL *XL*) PO SCH ×2 (21:00→23:45)
[2022-06-27] MEDS ORDERED: INSULIN LISPRO (NovoLOG) PER UNIT SC SCH (21:00)
[2022-06-27] MEDS ORDERED: CLOPIDOGREL 75 MG TAB PO SCH (21:00)
[2022-06-27] MEDS ORDERED: EZETIMIBE 10MG TABLET (ZETIA) PO SCH (21:00)
[2022-06-27] MEDS ORDERED: AMIODARONE 200 MG TAB (PACERONE) PO SCH (21:00)
[2022-06-27 22:30] VITALS: BP 152/78
[2022-06-27] MEDS: RANOLAZINE 500MG ER TAB PO SCH (23:40)
[2022-06-27] MEDS: FUROSEMIDE 20 MG TAB PO SCH (23:41)
[2022-06-27] MEDS: PANTOPRAZOLE 40MG TAB (PROTONIX) PO SCH (23:41)
[2022-06-27 23:45] VITALS: BP 123/62
[2022-06-28 05:12] VITALS: BP 123/70
[2022-06-28] MEDS ORDERED: LEVOTHYROXINE 25MCG TABLET (0.025MG) PO SCH (06:00)
[2022-06-28 06:46] LABS: HEMATOCRIT 28.9 % (42.0-52.0); HEMOGLOBIN 9.5 g/dl (13.5-17.5); MEAN CORPUSCULAR HEMOGLOBIN 31.5 pg (27.0-33.0); MEAN CORPUSCULAR HGB CONC 32.9 g/dl (32.0-36.5); MEAN CORPUSCULAR VOLUME 95.7 fl (80.0-96.0); PLATELET COUNT, AUTOMATED 158 10^3/uL (150-450); RED BLOOD COUNT 3.02 10^6/uL (4.30-6.10); WHITE BLOOD COUNT 5.5 10^3/uL (4.0-10.0)
[2022-06-28 07:14] LABS: MAGNESIUM LEVEL 1.8 MG/DL (1.8-2.4)
[2022-06-28 07:16] LABS: ALBUMIN 3.2 G/DL (3.2-5.2); ALKALINE PHOSPHATASE 86 U/L (46-116); ALT/SGPT 18 U/L (7.0-40); AST/SGOT 23 U/L (<34); BILIRUBIN,TOTAL 0.7 MG/DL (0.3-1.2); BLOOD UREA NITROGEN 16 MG/DL (9-23); CALCIUM LEVEL 8.3 MG/DL (8.3-10.6); CARBON DIOXIDE LEVEL 23 MMOL/L (20-31); CHLORIDE LEVEL 109 MMOL/L (98-107); CREATININE FOR GFR 1.13 MG/DL (0.70-1.30); GLOMERULAR FILTRATION RATE > 60.0 (>49); GLUCOSE, FASTING 111 MG/DL (74-106); SODIUM LEVEL 143 MMOL/L (136-145); TOTAL PROTEIN 5.9 G/DL (5.7-8.2)
[2022-06-28] MEDS: INSULIN LISPRO (NovoLOG) PER UNIT SC SCH (08:31)
[2022-06-28] MEDS: RANOLAZINE 500MG ER TAB PO SCH (08:52)
[2022-06-28] MEDS: PANTOPRAZOLE 40MG TAB (PROTONIX) PO SCH (08:55)
[2022-06-28] MEDS: FUROSEMIDE 20 MG TAB PO SCH (08:55)
[2022-06-28] MEDS ORDERED: CLOPIDOGREL 75 MG TAB PO SCH (09:00)
[2022-06-28] MEDS ORDERED: EZETIMIBE 10MG TABLET (ZETIA) PO SCH (09:00)
[2022-06-28] MEDS ORDERED: FERROUS SULFATE 325MG TAB PO SCH (09:00)
[2022-06-28] MEDS ORDERED: ASPIRIN 81MG CHEW TABLET PO SCH (09:00)
== END 2022-06-28 10:59 | disposition home or self-care (01) | DRG 204 ==
LOC: EDBD 11:39 → M ED 11:39 → M ED INP 16:58 → M MSPAV 22:27
PROVIDERS: ADMIT Family Medicine; ATTEND Family Medicine
DX: I95.1 Orthostatic hypotension (principal); I13.0 Hypertensive heart and chronic kidney disease with heart failure and stage 1 through stage 4 chronic kidney disease, or unspecified chronic kidney disease; E11.22 Type 2 diabetes mellitus with diabetic chronic kidney disease; I50.22 Chronic systolic (congestive) heart failure; I48.91 Unspecified atrial fibrillation; I25.2 Old myocardial infarction; N18.9 Chronic kidney disease, unspecified; G47.33 Obstructive sleep apnea (adult) (pediatric); K44.9 Diaphragmatic hernia without obstruction or gangrene; D50.9 Iron deficiency anemia, unspecified; I49.9 Cardiac arrhythmia, unspecified; Z79.82 Long term (current) use of aspirin; Z79.02 Long term (current) use of antithrombotics/antiplatelets; Z79.890 Hormone replacement therapy; Z79.899 Other long term (current) drug therapy; Z88.8 Allergy status to other drugs, medicaments and biological substances

== ENCOUNTER → 2022-09-18 | Outpatient (REF) | payer BC, MEDICARE ==
[~2022-09-18] MED LIST changes: +ASPI81CH48 PO; +FURO20TA2 PO; +ICAPCAP2 PO; +LEVO25TA5 PO
[2022-09-18 17:51] LABS: PERCENT SATURATION 14.7 % (19.7-50.0)
[2022-09-18 17:53] LABS: FOLATE 10.4 NG/ML (>5.4)
== END ==
LOC: M LAB REF 16:16
PROVIDERS: ATTEND Internal Medicine
DX: D50.0 Iron deficiency anemia secondary to blood loss (chronic) (principal); D51.9 Vitamin B12 deficiency anemia, unspecified

== ENCOUNTER 2022-11-07 09:52 | Observation (INO) | payer BC, MEDICARE ==
[~2022-11-07] VITALS: Ht 170.2 cm; Wt 78.3 kg
[~2022-11-07 09:52] MED LIST changes: +FLUT50SP17; -FLUTISP
[2022-11-07 11:08] LABS: BASO % 0.3 % (0.0-1.0); EOS # 0.1 10^3/uL (0.0-0.5); EOS % 1.7 % (0.0-3.0); HEMATOCRIT 40.7 % (42.0-52.0); HEMOGLOBIN 13.4 g/dl (13.5-17.5); LYMPH # 1.9 10^3/uL (1.5-5.0); LYMPH % 31.5 % (24.0-44.0); MEAN CORPUSCULAR HEMOGLOBIN 31.1 pg (27.0-33.0); MEAN CORPUSCULAR HGB CONC 32.9 g/dl (32.0-36.5); MEAN CORPUSCULAR VOLUME 94.4 fl (80.0-96.0); MONO # 0.7 10^3/uL (0.0-0.8); MONO % 12.3 % (2.0-8.0); NEUTROPHILS # 3.2 10^3/uL (1.5-8.5); NEUTROPHILS % 53.7 % (36.0-66.0); PLATELET COUNT, AUTOMATED 189 10^3/uL (150-450); RED BLOOD COUNT 4.31 10^6/uL (4.30-6.10); WHITE BLOOD COUNT 5.9 10^3/uL (4.0-10.0)
[2022-11-07 11:18] LABS: INR 0.94; PROTHROMBIN TIME 12.8 SECONDS (12.5-14.5)
[2022-11-07 11:19] LABS: PARTIAL THROMBOPLASTIN TIME 26.7 SECONDS (24.8-34.2)
[2022-11-07 11:37] LABS: BLOOD UREA NITROGEN 17 MG/DL (9-23); CALCIUM LEVEL 8.7 MG/DL (8.3-10.6); CARBON DIOXIDE LEVEL 26 MMOL/L (20-31); CHLORIDE LEVEL 108 MMOL/L (98-107); CREATININE FOR GFR 1.17 MG/DL (0.70-1.30); GLOMERULAR FILTRATION RATE > 60.0 (>49); GLUCOSE, FASTING 119 MG/DL (74-106); POTASSIUM SERUM 4.6 MMOL/L (3.5-5.1); SODIUM LEVEL 140 MMOL/L (136-145)
[2022-11-07] MEDS ORDERED: ISOVUE-370 76% 100ML VIAL As Ordered ONE (11:50)
[2022-11-07 12:19] LABS: RSV AMPLIFICATION NEGATIVE (NEGATIVE)
[2022-11-07] MEDS ORDERED: GLUCOSE 4GM CHEW TABLET PO PRN (14:15)
[2022-11-07] MEDS ORDERED: GLUCAGON INJ 1MG VIAL SC PRN (14:15)
[2022-11-07] MEDS ORDERED: DEXTROSE 50% 50ML SYRINGE IV PRN (14:15)
[2022-11-07 14:39] LABS: CHOLESTEROL LEVEL 111 MG/DL (<200); CHOLESTEROL RISK RATIO 1.85 (<5); HDL CHOLESTEROL 59.8 MG/DL (>40); LDL CHOLESTEROL 12.8 MG/DL (<100); NON-HDL-C 51.2 MG/DL; TRIGLYCERIDES LEVEL 192 MG/DL (<150)
[2022-11-07] MEDS ORDERED: ICAPCAP2 PO (14:41)
[2022-11-07] MEDS ORDERED: LEVO50TA5 PO (14:41)
[2022-11-07] MEDS ORDERED: ACET-907 PO (14:41)
[2022-11-07] MEDS ORDERED: HOME MED LIST COMPLETE! XX SCH (14:45)
[2022-11-07] MEDS ORDERED: ACETAMINOPHEN 325 MG TAB PO PRN (14:45)
[2022-11-07 15:09] LABS: HEMOGLOBIN A1c 6.2 % (4.0-6.0)
[2022-11-07 15:15] VITALS: BP 153/77
[2022-11-07 16:00] VITALS: BP 136/93
[2022-11-07] MEDS ORDERED: INSULIN LISPRO (NovoLOG) PER UNIT SC SCH ×2 (17:30→21:00)
[2022-11-07 20:00] VITALS: BP 141/69
[2022-11-07 20:35] VITALS: BP_SYST 141
[2022-11-07] MEDS: RANOLAZINE 500MG ER TAB PO SCH (20:35)
[2022-11-07] MEDS: PANTOPRAZOLE 40MG TAB (PROTONIX) PO SCH (20:35)
[2022-11-07] MEDS ORDERED: METOPROLOL SUCC *XL* 25MG TAB (TopROL *XL*) PO SCH (21:00)
[2022-11-07] MEDS ORDERED: EZETIMIBE 10MG TABLET (ZETIA) PO SCH (21:00)
[2022-11-08] VITALS: BP 116/65
[2022-11-08 04:00] VITALS: BP 110/55
[2022-11-08 05:48] LABS: BASO % 0.6 % (0.0-1.0); EOS # 0.2 10^3/uL (0.0-0.5); HEMATOCRIT 39.9 % (42.0-52.0); HEMOGLOBIN 13.3 g/dl (13.5-17.5); LYMPH # 1.4 10^3/uL (1.5-5.0); LYMPH % 26.9 % (24.0-44.0); MEAN CORPUSCULAR HEMOGLOBIN 31.4 pg (27.0-33.0); MEAN CORPUSCULAR HGB CONC 33.3 g/dl (32.0-36.5); MEAN CORPUSCULAR VOLUME 94.3 fl (80.0-96.0); MONO # 0.6 10^3/uL (0.0-0.8); MONO % 11.7 % (2.0-8.0); NEUTROPHILS # 2.9 10^3/uL (1.5-8.5); NEUTROPHILS % 57.4 % (36.0-66.0); PLATELET COUNT, AUTOMATED 177 10^3/uL (150-450); RED BLOOD COUNT 4.23 10^6/uL (4.30-6.10); WHITE BLOOD COUNT 5.1 10^3/uL (4.0-10.0)
[2022-11-08] MEDS ORDERED: LEVOTHYROXINE 50MCG TABLET (0.05MG) PO SCH (06:00)
[2022-11-08 06:12] LABS: BLOOD UREA NITROGEN 18 MG/DL (9-23); CALCIUM LEVEL 8.9 MG/DL (8.3-10.6); CARBON DIOXIDE LEVEL 26 MMOL/L (20-31); CHLORIDE LEVEL 106 MMOL/L (98-107); CREATININE FOR GFR 1.19 MG/DL (0.70-1.30); GLOMERULAR FILTRATION RATE > 60.0 (>49); GLUCOSE, FASTING 127 MG/DL (74-106); MAGNESIUM LEVEL 1.8 MG/DL (1.8-2.4); POTASSIUM SERUM 4.4 MMOL/L (3.5-5.1); SODIUM LEVEL 139 MMOL/L (136-145)
[2022-11-08 08:00] VITALS: BP 140/79
[2022-11-08] MEDS ORDERED: CLOPIDOGREL 75 MG TAB PO SCH (09:00)
[2022-11-08] MEDS ORDERED: FERROUS SULFATE 325MG TAB PO SCH (09:00)
[2022-11-08] MEDS ORDERED: ASPIRIN 81MG CHEW TABLET PO SCH (09:00)
[2022-11-08] MEDS: RANOLAZINE 500MG ER TAB PO SCH (09:01)
[2022-11-08] MEDS: PANTOPRAZOLE 40MG TAB (PROTONIX) PO SCH (09:02)
[2022-11-08] MEDS ORDERED: FURO20TA2 PO (10:25)
== END 2022-11-08 12:34 | disposition home or self-care (01) ==
LOC: M ED 09:52 → M ED INP 09:53 → M PCU 15:12
PROVIDERS: ADMIT Internal Medicine; ATTEND Internal Medicine
DX: R20.2 Paresthesia of skin (principal); I65.21 Occlusion and stenosis of right carotid artery; I16.0 Hypertensive urgency; I48.91 Unspecified atrial fibrillation; I25.10 Atherosclerotic heart disease of native coronary artery without angina pectoris; Z95.5 Presence of coronary angioplasty implant and graft; I25.2 Old myocardial infarction; E11.9 Type 2 diabetes mellitus without complications; E78.5 Hyperlipidemia, unspecified; E03.9 Hypothyroidism, unspecified; N18.30 Chronic kidney disease, stage 3 unspecified; Z87.19 Personal history of other diseases of the digestive system; Z95.0 Presence of cardiac pacemaker; R60.0 Localized edema; G47.33 Obstructive sleep apnea (adult) (pediatric); N40.0 Benign prostatic hyperplasia without lower urinary tract symptoms; Z98.84 Bariatric surgery status; Z79.899 Other long term (current) drug therapy; Z79.890 Hormone replacement therapy; Z79.82 Long term (current) use of aspirin; Z79.02 Long term (current) use of antithrombotics/antiplatelets; Z88.8 Allergy status to other drugs, medicaments and biological substances
CPT/HCPCS: 36415; 70450; 70496; 70498; 71045; 80048; 80061; 83036; 83735; 85025; 85610; 85730; 86850; 86900; 86901; 87631; 93005; 93041; 93306; 94760; 97161; 99285; Q9967

== ENCOUNTER → 2023-04-22 | Outpatient (CLI) | payer BC, MEDICARE ==
[~2023-04-22] MED LIST changes: +ACET-907 PO; +LEVO50TA5 PO
[2023-04-22 12:07] LABS: BASO % 0.4 % (0.0-1.0); EOS # 0.1 10^3/uL (0.0-0.5); HEMATOCRIT 40.2 % (42.0-52.0); HEMOGLOBIN 13.2 g/dl (13.5-17.5); LYMPH # 1.7 10^3/uL (1.5-5.0); LYMPH % 30.9 % (24.0-44.0); MEAN CORPUSCULAR HEMOGLOBIN 32.4 pg (27.0-33.0); MEAN CORPUSCULAR HGB CONC 32.8 g/dl (32.0-36.5); MEAN CORPUSCULAR VOLUME 98.5 fl (80.0-96.0); MONO # 0.7 10^3/uL (0.0-0.8); NEUTROPHILS % 54.2 % (36.0-66.0); PLATELET COUNT, AUTOMATED 197 10^3/uL (150-450); RED BLOOD COUNT 4.08 10^6/uL (4.30-6.10); WHITE BLOOD COUNT 5.5 10^3/uL (4.0-10.0)
[2023-04-22 12:11] LABS: ALBUMIN 3.8 G/DL (3.2-5.2); CALCIUM LEVEL 8.8 MG/DL (8.3-10.6); CREATININE FOR GFR 1.49 MG/DL (0.70-1.30); GLOMERULAR FILTRATION RATE 49.9 (>49); PHOSPHORUS LEVEL 3.2 MG/DL (2.4-5.1); POTASSIUM SERUM 4.2 MMOL/L (3.5-5.1)
== END ==
LOC: M WUC 09:32
PROVIDERS: ATTEND Physician Assistant
DX: M79.675 Pain in left toe(s) (principal)

== ENCOUNTER → 2023-05-18 | Outpatient (REF) | payer BC, MEDICARE ==
[2023-05-18 17:24] LABS: PERCENT SATURATION 24.9 % (19.7-50.0)
[2023-05-18 17:26] LABS: TOTAL 25(OH) VITAMIN D 55.9 NG/ML (20.0-100.0)
[2023-05-18 17:28] LABS: FOLATE 8.8 NG/ML (>5.4)
== END ==
LOC: M LAB REF 12:08
PROVIDERS: ATTEND Internal Medicine
DX: Z98.84 Bariatric surgery status (principal)

== ENCOUNTER → 2023-08-11 | Outpatient (CLI) | payer BC, MEDICARE ==
[~2023-08-11] MED LIST changes: -FLUT50SP17; +FLUTISP
[2023-08-11 11:42] LABS: BASO % 0.4 % (0.0-1.0); EOS # 0.1 10^3/uL (0.0-0.5); EOS % 1.6 % (0.0-3.0); HEMATOCRIT 39.9 % (42.0-52.0); HEMOGLOBIN 13.2 g/dl (13.5-17.5); LYMPH # 1.8 10^3/uL (1.5-5.0); LYMPH % 26.9 % (24.0-44.0); MEAN CORPUSCULAR HEMOGLOBIN 31.8 pg (27.0-33.0); MEAN CORPUSCULAR HGB CONC 33.1 g/dl (32.0-36.5); MEAN CORPUSCULAR VOLUME 96.1 fl (80.0-96.0); MONO # 0.7 10^3/uL (0.0-0.8); MONO % 10.5 % (2.0-8.0); NEUTROPHILS % 60.3 % (36.0-66.0); PLATELET COUNT, AUTOMATED 198 10^3/uL (150-450); RED BLOOD COUNT 4.15 10^6/uL (4.30-6.10); WHITE BLOOD COUNT 6.7 10^3/uL (4.0-10.0)
[2023-08-11 12:12] LABS: ALBUMIN 3.7 G/DL (3.2-5.2); BILIRUBIN,TOTAL 1.2 MG/DL (0.3-1.2); CREATININE FOR GFR 1.37 MG/DL (0.70-1.30); GLOMERULAR FILTRATION RATE 54.8 (>49); POTASSIUM SERUM 4.8 MMOL/L (3.5-5.1); TOTAL PROTEIN 6.9 G/DL (5.7-8.2)
[2023-08-11 13:14] LABS: IMMUNOGLOBULIN A 171.3 MG/DL (40-350); IMMUNOGLOBULIN G 1187 MG/DL (650-1600)
[2023-08-12 19:08] LABS: FREE KAPPA LIGHT CHAINS SERUM 38.7 mg/L (3.3-19.4); FREE LAMBDA LIGHT CHAINS SERUM 16.2 mg/L (5.7-26.3); IMMUNOTYPING SERUM IGA SO 181 mg/dL (61-437); IMMUNOTYPING SERUM IGM SO 45 mg/dL (20-172); KAPPA/LAMBDA RATIO SERUM 2.39 (0.26-1.65)
== END ==
LOC: M LAB 10:46
PROVIDERS: ATTEND Psychiatry & Neurology Neurology
DX: D47.2 Monoclonal gammopathy (principal)

== ENCOUNTER → 2023-09-25 | Outpatient (REF) | payer BC, MEDICARE ==
[~2023-09-25] MED LIST changes: +GABA-1171
[2023-09-25 18:28] LABS: CALCIUM LEVEL 8.6 MG/DL (8.3-10.6); CREATININE FOR GFR 1.42 MG/DL (0.70-1.30); GLOMERULAR FILTRATION RATE 52.6 (>49); POTASSIUM SERUM 4.3 MMOL/L (3.5-5.1)
== END ==
LOC: M LABWUC 17:24
PROVIDERS: ATTEND Psychiatry & Neurology Neurology
DX: G45.9 Transient cerebral ischemic attack, unspecified (principal)

== ENCOUNTER → 2023-11-12 | Outpatient (CLI) | payer BC, MEDICARE | LOC: M WUC 09:06 | PROVIDERS: ATTEND Nurse Practitioner Family | DX: M25.512 Pain in left shoulder (principal) ==

== ENCOUNTER → 2023-12-11 | Outpatient (REF) | payer BC, MEDICARE ==
[2023-12-11 15:16] LABS: PERCENT SATURATION 21.1 % (19.7-50.0)
[2023-12-11 15:18] LABS: FOLATE 7.7 NG/ML (>5.4)
[2023-12-17 18:08] LABS: FREE KAPPA LIGHT CHAINS SERUM 42.2 mg/L (3.3-19.4); FREE LAMBDA LIGHT CHAINS SERUM 15.5 mg/L (5.7-26.3); KAPPA/LAMBDA RATIO SERUM 2.72 (0.26-1.65)
== END ==
LOC: M LAB REF 12:59
PROVIDERS: ATTEND Internal Medicine
DX: R20.2 Paresthesia of skin (principal); Z98.84 Bariatric surgery status; D50.9 Iron deficiency anemia, unspecified

== ENCOUNTER → 2024-01-07 | Outpatient (CLI) | payer BC, MEDICARE | LOC: M RAD 08:09 | PROVIDERS: ATTEND Internal Medicine | DX: Z01.89 Encounter for other specified special examinations (principal) ==

== ENCOUNTER → 2024-02-08 | Outpatient (CLI) | payer BC, MEDICARE | LOC: M WUC 14:54 | PROVIDERS: ATTEND Nurse Practitioner Family | DX: M25.562 Pain in left knee (principal) ==

== ENCOUNTER 2024-05-05 16:01 | Emergency (ER) | payer BC, MEDICARE ==
[~2024-05-05] VITALS: Ht 172.7 cm; Wt 79.5 kg
[2024-05-05 16:39] LABS: BASO % 0.3 % (0.0-1.0); EOS # 0.1 10^3/uL (0.0-0.5); EOS % 0.8 % (0.0-3.0); HEMATOCRIT 37.5 % (42.0-52.0); HEMOGLOBIN 12.5 g/dl (13.5-17.5); LYMPH # 1.1 10^3/uL (1.5-5.0); LYMPH % 14.9 % (24.0-44.0); MEAN CORPUSCULAR HEMOGLOBIN 31.6 pg (27.0-33.0); MEAN CORPUSCULAR HGB CONC 33.3 g/dl (32.0-36.5); MEAN CORPUSCULAR VOLUME 94.7 fl (80.0-96.0); MONO # 0.7 10^3/uL (0.0-0.8); MONO % 9.6 % (2.0-8.0); NEUTROPHILS # 5.3 10^3/uL (1.5-8.5); NEUTROPHILS % 74.3 % (36.0-66.0); PLATELET COUNT, AUTOMATED 191 10^3/uL (150-450); RED BLOOD COUNT 3.96 10^6/uL (4.30-6.10); WHITE BLOOD COUNT 7.1 10^3/uL (4.0-10.0)
[2024-05-05 17:09] LABS: BLOOD UREA NITROGEN 15 MG/DL (9-23); CALCIUM LEVEL 9.5 MG/DL (8.3-10.6); CARBON DIOXIDE LEVEL 27 MMOL/L (20-31); CHLORIDE LEVEL 108 MMOL/L (98-107); CREATININE FOR GFR 1.21 MG/DL (0.70-1.30); GLOMERULAR FILTRATION RATE > 60.0 (>49); GLUCOSE, FASTING 135 MG/DL (74-106); POTASSIUM SERUM 4.2 MMOL/L (3.5-5.1); SODIUM LEVEL 141 MMOL/L (136-145)
[2024-05-05 17:10] LABS: CPK CREATINE PHOSPHOKINASE 89 U/L (46-171)
[2024-05-05 17:16] LABS: CK-MB VALUE MASS < 1.0 NG/ML (<3.6); MB/CK RELATIVE INDEX 1.12 (< OR =4)
[2024-05-05 17:26] LABS: INR 1.11
[2024-05-05 18:04] LABS: CK-MB VALUE MASS < 1.0 NG/ML (<3.6)
[2024-05-05 18:06] LABS: CPK CREATINE PHOSPHOKINASE 80 U/L (46-171); MB/CK RELATIVE INDEX 1.25 (< OR =4)
[2024-05-05 18:37] VITALS: BP 115/62; TEMP 98.6; O2SAT 96
[2024-05-10] MEDS ORDERED: PREG25CA3 (08:26)
== END 2024-05-05 18:48 | disposition home or self-care (01) ==
LOC: M ED 16:01 → EDBD 16:01 → M ED 18:48
DX: R07.9 Chest pain, unspecified (principal); E11.9 Type 2 diabetes mellitus without complications; I50.22 Chronic systolic (congestive) heart failure; I11.0 Hypertensive heart disease with heart failure; I25.2 Old myocardial infarction; E78.5 Hyperlipidemia, unspecified; Z88.8 Allergy status to other drugs, medicaments and biological substances; Z79.1 Long term (current) use of non-steroidal anti-inflammatories (NSAID); Z79.899 Other long term (current) drug therapy

== ENCOUNTER → 2024-08-15 | Outpatient (REF) | payer BC, MEDICARE ==
[~2024-08-15] MED LIST changes: +PREG25CA3
[2024-08-15 14:29] LABS: FERRITIN 23.2 NG/ML (10.5-307.3); PERCENT SATURATION 24.7 % (19.7-50.0); PHOSPHORUS LEVEL 3.3 MG/DL (2.4-5.1)
[2024-08-15 14:30] LABS: TOTAL 25(OH) VITAMIN D 77.4 NG/ML (20.0-100.0)
== END ==
LOC: M LAB REF 12:31
PROVIDERS: ATTEND Internal Medicine
DX: Z98.84 Bariatric surgery status (principal)

== ENCOUNTER 2024-11-26 10:20 | Emergency (ER) | payer BC, MEDICARE ==
[~2024-11-26] VITALS: Ht 170.2 cm; Wt 81.2 kg
[2024-11-26 11:20] LABS: BASO % 0.5 % (0.0-1.0); EOS # 0.1 10^3/uL (0.0-0.5); EOS % 1.1 % (0.0-3.0); HEMATOCRIT 28.5 % (42.0-52.0); HEMOGLOBIN 9.4 g/dl (13.5-17.5); LYMPH # 1.4 10^3/uL (1.5-5.0); LYMPH % 25.4 % (24.0-44.0); MEAN CORPUSCULAR HEMOGLOBIN 30.3 pg (27.0-33.0); MEAN CORPUSCULAR VOLUME 91.9 fl (80.0-96.0); MONO # 0.7 10^3/uL (0.0-0.8); NEUTROPHILS # 3.4 10^3/uL (1.5-8.5); NEUTROPHILS % 60.6 % (36.0-66.0); PLATELET COUNT, AUTOMATED 246 10^3/uL (150-450); WHITE BLOOD COUNT 5.7 10^3/uL (4.0-10.0)
[2024-11-26 11:38] LABS: CK-MB VALUE MASS < 1.0 NG/ML (<3.6)
[2024-11-26 11:39] LABS: BLOOD UREA NITROGEN 27 MG/DL (9-23); CALCIUM LEVEL 8.9 MG/DL (8.3-10.6); CARBON DIOXIDE LEVEL 26 MMOL/L (20-31); CHLORIDE LEVEL 104 MMOL/L (98-107); CPK CREATINE PHOSPHOKINASE 121 U/L (46-171); CREATININE FOR GFR 1.46 MG/DL (0.70-1.30); GLOMERULAR FILTRATION RATE 51.4 (>42); GLUCOSE, FASTING 185 MG/DL (74-106); MB/CK RELATIVE INDEX 0.82 (< OR =4); POTASSIUM SERUM 4.2 MMOL/L (3.5-5.1); SODIUM LEVEL 141 MMOL/L (136-145)
[2024-11-26] MEDS ORDERED: ISOVUE-370 76% 100ML VIAL As Ordered ONE (12:18)
[2024-11-26 12:42] LABS: CK-MB VALUE MASS 1.1 NG/ML (<3.6); MB/CK RELATIVE INDEX 1.06 (< OR =4)
[2024-11-26 14:25] VITALS: O2SAT 99
[2024-11-26 15:51] VITALS: BP 123/75; TEMP 97.7; O2SAT 99
== END 2024-11-26 16:00 | disposition home or self-care (01) ==
LOC: M ED 10:20
DX: R06.00 Dyspnea, unspecified (principal); I25.2 Old myocardial infarction; I48.91 Unspecified atrial fibrillation; I50.22 Chronic systolic (congestive) heart failure; I11.0 Hypertensive heart disease with heart failure; E78.5 Hyperlipidemia, unspecified; Z86.73 Personal history of transient ischemic attack (TIA), and cerebral infarction without residual deficits; Z88.8 Allergy status to other drugs, medicaments and biological substances; Z79.1 Long term (current) use of non-steroidal anti-inflammatories (NSAID); Z79.899 Other long term (current) drug therapy
CPT/HCPCS: 36415; 71045; 71275; 80048; 82550; 82553; 83880; 84484; 85025; 87486; 87581; 87633; 87798; 93005; 93041; 94760; 99285; Q9967

== ENCOUNTER → 2024-11-29 | Outpatient (REF) | payer BC, MEDICARE ==
[2024-11-29 17:42] LABS: PERCENT SATURATION 4.3 % (19.7-50.0)
[2024-11-29 17:45] LABS: FERRITIN 9.5 NG/ML (10.5-307.3)
== END ==
LOC: M LAB REF 16:33
PROVIDERS: ATTEND Nurse Practitioner Family
DX: D64.9 Anemia, unspecified (principal)

== ENCOUNTER 2024-12-02 12:47 | Inpatient (IN) | payer MEDICARE, BC ==
[2024-12-02] VITALS (9 sets, daily range): BP systolic 125–150; BP diastolic 63–92; TEMP 97.5–98; O2SAT 95–100
[~2024-12-02] VITALS: Ht 170.2 cm; Wt 82.3 kg
[~2024-12-02 12:47] MED LIST changes: -PREG25CA3; +PREG25CA3 PO
[2024-12-02 14:05] LABS: BASO % 0.2 % (0.0-1.0); EOS # 0.1 10^3/uL (0.0-0.5); EOS % 1.1 % (0.0-3.0); HEMATOCRIT 23.1 % (42.0-52.0); HEMOGLOBIN 7.4 g/dl (13.5-17.5); LYMPH # 1.3 10^3/uL (1.5-5.0); LYMPH % 22.9 % (24.0-44.0); MEAN CORPUSCULAR HEMOGLOBIN 29.8 pg (27.0-33.0); MEAN CORPUSCULAR VOLUME 93.1 fl (80.0-96.0); MONO # 0.5 10^3/uL (0.0-0.8); NEUTROPHILS # 3.6 10^3/uL (1.5-8.5); NEUTROPHILS % 66.6 % (36.0-66.0); PLATELET COUNT, AUTOMATED 234 10^3/uL (150-450); RED BLOOD COUNT 2.48 10^6/uL (4.30-6.10); WHITE BLOOD COUNT 5.5 10^3/uL (4.0-10.0)
[2024-12-02 14:24] LABS: INR 0.89; PARTIAL THROMBOPLASTIN TIME 24.6 SECONDS (24.8-34.2); PROTHROMBIN TIME 12.4 SECONDS (12.5-14.5)
[2024-12-02 14:34] LABS: CALCIUM LEVEL 8.6 MG/DL (8.3-10.6); CREATININE FOR GFR 1.31 MG/DL (0.70-1.30); GLOMERULAR FILTRATION RATE 58.6 (>42); POTASSIUM SERUM 3.9 MMOL/L (3.5-5.1)
[2024-12-02] MEDS ORDERED: ISOVUE-370 76% 100ML VIAL As Ordered ONE (14:58)
[2024-12-02 15:09] LABS: ALBUMIN 3.7 G/DL (3.2-5.2); BILIRUBIN,DIRECT 0.2 MG/DL (<0.4); BILIRUBIN,TOTAL 0.6 MG/DL (0.3-1.2); TOTAL PROTEIN 6.6 G/DL (5.7-8.2)
[2024-12-02] MEDS: PANTOPRAZOLE 40MG VIAL IV ONE ×2 (15:18→17:05)
[2024-12-02] MEDS ORDERED: FURO20TA2 PO (17:29)
[2024-12-02] MEDS ORDERED: METF500T13 PO (17:33)
[2024-12-02] MEDS ORDERED: NITR0.4S14 SL (17:35)
[2024-12-02] MEDS ORDERED: COLC0.6T47 PO (17:35)
[2024-12-02] MEDS ORDERED: HOME MED LIST COMPLETE! XX SCH (17:40)
[2024-12-02] MEDS: SUCRALFATE 1 GM TAB PO SCH (17:43)
[2024-12-02] MEDS ORDERED: ACETAMINOPHEN 325 MG TAB PO PRN (18:40)
[2024-12-02] MEDS ORDERED: GLUCAGON INJ 1MG VIAL SC PRN (18:45)
[2024-12-02] MEDS ORDERED: GLUCOSE 4 GM CHEW PO PRN (18:45)
[2024-12-02] MEDS ORDERED: DEXTROSE 50% 50ML SYRINGE IV PRN (18:45)
[2024-12-02] MEDS: INSULIN LISPRO (NovoLOG) PER UNIT SC SCH (21:00)
[2024-12-02] MEDS: PANTOPRAZOLE 40MG TAB (PROTONIX) PO SCH (21:32)
[2024-12-02] MEDS: PREGABALIN 25 MG CAP (LYRICA) PO SCH (21:32)
[2024-12-02] MEDS: EZETIMIBE 10MG TABLET (ZETIA) PO SCH (21:32)
[2024-12-02] MEDS: METOPROLOL SUCC *XL* 25MG TAB (TopROL *XL*) PO SCH (21:33)
[2024-12-03] VITALS (7 sets, daily range): BP systolic 128–146; BP diastolic 73–82; TEMP 97–97.9; O2SAT 95–98
[2024-12-03 05:26] LABS: HEMATOCRIT 30.7 % (42.0-52.0)
[2024-12-03 05:39] LABS: HEMOGLOBIN 10.1 g/dl (13.5-17.5)
[2024-12-03] MEDS: LEVOTHYROXINE 50MCG TABLET (0.05MG) PO SCH (05:48)
[2024-12-03 08:02] LABS: CREATININE FOR GFR 1.15 MG/DL (0.70-1.30); GLOMERULAR FILTRATION RATE 68.5 (>42); MAGNESIUM LEVEL 1.9 MG/DL (1.8-2.4); POTASSIUM SERUM 4.2 MMOL/L (3.5-5.1)
[2024-12-03] MEDS: INSULIN LISPRO (NovoLOG) PER UNIT SC SCH (08:10)
[2024-12-03 08:18] LABS: HEMOGLOBIN A1c 6.2 % (4.0-6.0)
[2024-12-03] MEDS ORDERED: POLYETHYLENE GLYCOL (MIRALAX) 238GM BOTTLE PO ONE (09:00)
[2024-12-03 12:21] LABS: HEMATOCRIT 32.3 % (42.0-52.0); HEMOGLOBIN 10.7 g/dl (13.5-17.5)
[2024-12-03] MEDS ORDERED: SUCR1TA PO (13:38)
[2024-12-04] MEDS ORDERED: NS (Normal Saline) 0.9% 1,000 ML IV SCH (06:00)
== END 2024-12-03 14:00 | disposition home or self-care (01) | DRG 812 ==
LOC: M ED 12:47 → M ED INP 17:04 → M MS5PR 18:48
PROVIDERS: ADMIT General Practice; ATTEND General Practice
PROC: 30233N1 Transfusion of Nonautologous Red Blood Cells into Peripheral Vein, Percutaneous Approach (ICD-10-PCS; principal; 2024-12-02)
DX: D64.9 Anemia, unspecified (principal); I48.91 Unspecified atrial fibrillation; I25.10 Atherosclerotic heart disease of native coronary artery without angina pectoris; I25.2 Old myocardial infarction; I65.29 Occlusion and stenosis of unspecified carotid artery; D47.2 Monoclonal gammopathy; Z98.84 Bariatric surgery status; I12.9 Hypertensive chronic kidney disease with stage 1 through stage 4 chronic kidney disease, or unspecified chronic kidney disease; E78.00 Pure hypercholesterolemia, unspecified; K21.9 Gastro-esophageal reflux disease without esophagitis; E03.9 Hypothyroidism, unspecified; E11.22 Type 2 diabetes mellitus with diabetic chronic kidney disease; N18.9 Chronic kidney disease, unspecified; Z90.49 Acquired absence of other specified parts of digestive tract; Z95.818 Presence of other cardiac implants and grafts; Z95.5 Presence of coronary angioplasty implant and graft; Z86.73 Personal history of transient ischemic attack (TIA), and cerebral infarction without residual deficits; Z79.82 Long term (current) use of aspirin; Z79.84 Long term (current) use of oral hypoglycemic drugs; Z79.899 Other long term (current) drug therapy; Z88.8 Allergy status to other drugs, medicaments and biological substances; Z79.01 Long term (current) use of anticoagulants; Z79.890 Hormone replacement therapy

== ENCOUNTER → 2025-01-23 | Outpatient (CLI) | payer BC, MEDICARE ==
[~2025-01-23] MED LIST changes: -AMIO200T49 PO; +AMIO200T54 PO; +COLC0.6T47 PO; +METF500T13 PO; +NITR0.4S14 SL; +SUCR1TA PO
[2025-01-23 11:08] LABS: BASO # 0.0 10^3/uL (0.0-0.2); BASO % 0.4 % (0.0-1.0); EOS # 0.1 10^3/uL (0.0-0.5); EOS % 2.4 % (0.0-3.0); LYMPH # 1.8 10^3/uL (1.5-5.0); LYMPH % 33.0 % (24.0-44.0); MONO # 0.7 10^3/uL (0.0-0.8); MONO % 13.8 % (2.0-8.0); NEUTROPHILS # 2.7 10^3/uL (1.5-8.5); NEUTROPHILS % 50.0 % (36.0-66.0); PLATELET COUNT, AUTOMATED 231 10^3/uL (150-450)
== END ==
LOC: M LAB 10:05
PROVIDERS: ATTEND Nurse Practitioner Acute Care
DX: D64.9 Anemia, unspecified (principal)

== ENCOUNTER → 2025-02-07 | Outpatient (CLI) | payer BC, MEDICARE | LOC: M WUC 13:57 | PROVIDERS: ATTEND Internal Medicine | DX: R06.02 Shortness of breath (principal) ==

== ENCOUNTER → 2025-03-16 | Outpatient (REF) | payer BC, MEDICARE ==
[2025-03-16 14:02] LABS: IRON (FE) 112.0 UG/DL (65-175); PERCENT SATURATION 24.3 % (19.7-50.0)
== END ==
LOC: M LAB REF 12:20
PROVIDERS: ATTEND Internal Medicine
DX: D50.9 Iron deficiency anemia, unspecified (principal)